=== PATIENT | female | born 1940 | race Caucasian/White ===

== ENCOUNTER → 2018-02-10 13:33 | Outpatient (CLI) | payer MEDICARE, MEDICAID, SELFPAY ==
[2018-02-10 15:10] LABS: ALB/GLOB Ratio 0.8 RATIO (0.9-2.4); AST(SGOT) 27 U/L (15-37); Alanine Aminotransfer ALT/SGPT 19 U/L (13-56); Albumin, Serum 3.5 g/dL (3.2-5.0); Alkaline Phosphatase 114 U/L (45-117); Anion Gap 8 (5-15); BUN 20 mg/dL (7-18); BUN/Creat Ratio 23.8 RATIO (10-20); Calcium,Total 8.6 mg/dL (8.5-10.1); Chloride 102 mmol/L (98-107); Creatinine, Serum 0.84 mg/dL (0.55-1.02); EST Glomerular Filtration Rate 69 mL/min (>60); Est Glom Filt Rate - Afr Amer 84 mL/min (>60); Globulin 4.6 g/dL (2.2-4.2); Glucose 84 mg/dL (74-106); Magnesium 2.1 mg/dL (1.6-2.6); Potassium 3.9 mmol/L (3.5-5.1); Protein, Total 8.1 g/dL (6.4-8.2); Sodium Level 137 mmol/L (136-145); Thyroid Stim Hormone (TSH) 1.42 uIU/mL (0.358-3.74)
== END ==
PROVIDERS: Family Provider Family Medicine; PCP Family Medicine; Visit Provider Internal Medicine Endocrinology, Diabetes & Metabolism
DX: E03.8 Other specified hypothyroidism (principal); E83.42 Hypomagnesemia
CPT/HCPCS: 36415; 80053; 83735; 84443

== ENCOUNTER → 2018-08-11 12:07 | Outpatient (CLI) | payer MEDICARE, MEDICAID, SELFPAY ==
[2018-08-11 13:24] LABS: ALB/GLOB Ratio 0.8 RATIO (0.9-2.4); AST(SGOT) 30 U/L (15-37); Alanine Aminotransfer ALT/SGPT 24 U/L (13-56); Albumin, Serum 3.6 g/dL (3.2-5.0); Alkaline Phosphatase 123 U/L (45-117); Anion Gap 11 (5-15); BUN 26 mg/dL (7-18); BUN/Creat Ratio 25.2 RATIO (10-20); Calcium,Total 8.8 mg/dL (8.5-10.1); Chloride 103 mmol/L (98-107); Creatinine, Serum 1.03 mg/dL (0.55-1.02); EST Glomerular Filtration Rate 55 mL/min (>60); Est Glom Filt Rate - Afr Amer 66 mL/min (>60); Globulin 4.5 g/dL (2.2-4.2); Glucose 95 mg/dL (74-106); Magnesium 2.2 mg/dL (1.6-2.6); Potassium 3.5 mmol/L (3.5-5.1); Protein, Total 8.1 g/dL (6.4-8.2); Sodium Level 140 mmol/L (136-145); Thyroid Stim Hormone (TSH) 9.49 uIU/mL (0.358-3.74)
[2018-08-11 13:42] LABS: Vitamin D,25 Hydroxy 106.9 ng/mL (29.95-100.01)
== END ==
PROVIDERS: Family Provider Family Medicine; PCP Family Medicine; Visit Provider Internal Medicine Endocrinology, Diabetes & Metabolism
DX: E03.8 Other specified hypothyroidism (principal); E55.9 Vitamin D deficiency, unspecified; E83.42 Hypomagnesemia
CPT/HCPCS: 36415; 80053; 82306; 83735; 84443

== ENCOUNTER → 2018-11-02 13:28 | Outpatient (CLI) | payer MEDICARE, MEDICAID, SELFPAY ==
[2018-11-02 14:58] LABS: Thyroid Stim Hormone (TSH) 1.54 uIU/mL (0.358-3.74)
--- OUTSIDE RECORDS SUMMARY | 2018-12-19 17:29 | XMS RPT_ITS ---
:1940 Author Organization OHIP Care Team Providers Name Role Phone KYLE REYES Attending Unavailable BIANKA CASTELLANO (PUBLIC INFORMATION RELATIONS MANAGER) Referring Unavailable ERIC, KYLE Wick Referring Unavailable ERIC, KYLE Wcik Referring Unavailable ERIC, KYLE Wick Referring Unavailable ERIC, KYLE Wick Referring Unavailable ERIC, KYLE Wick Referring Unavailable ERIC, KYLE Wick Referring Unavailable ERIC, KYLE Wick Referring Unavailable ERIC, KYLE Wick Referring Unavailable ALEJANDRO THORNTON (PUBLIC INFORMATION RELATIONS MANAGER) Attending Unavailable ERIC, KYLE Wick Referring Unavailable ERIC, KYLE Wick Referring Unavailable WIETECHATRAN Attending Unavailable WIETECHA, TRAN Referring Unavailable [place], Kyle Primary Care Unavailable WITRAN FLANAGAN Attending Unavailable WIETECHATRAN Referring Unavailable Eric, Kyle Primary Care Unavailable WIBUCKYCHATRAN Attending Unavailable WIETECHA, TRAN Referring Unavailable Eric, Kyle Primary Care Unavailable PROBLEMS PROBLEMS DATE TYPE CONDITION / CODE ATTENDING STATUS SOURCE 11/02/2018 Unknown E03.8 - Other WIETEMICHAEL, TRAN Active [facility] hypothyroidism / Hospital E03.8(ICD-10) Repository 08/11/2018 Unknown E83.42 - WIETEMICHAEL, TRAN Active [facility] Hypomagnesemia / Community E83.42(ICD-10) Hospital Repository 08/11/2018 Unknown E55.9 - Vitamin D WIETEMICHAEL, TRAN Active [facility] deficiency, Community unspecified / Hospital E55.9(ICD-10) Repository 04/06/2018 Active Encounter for Active [facility] screening [facility] for malignant P[place] neoplasm of breast / Repository Z12.31(ICD-10) PROCEDURES PROCEDURES No Procedure Records FoundRESULTS RESULTS CNNURSE Observed: 11/21/2018 Status: COMPLETED Source: [place] 1:30 PM [facility] REPOSITORY Nurse Visit (FAMPWS) URSULAJACKLYN ([id number]) 1940 F NFR Date Time Provider Department 11/21/18 1:30 PM [place] [facility] During your visit today, we recorded the following information about you: Damari Durham LPN 11/21/2018 1:30 PM Signed Patient presents for B-12 injection. Denies any problems at this time. Patient instructed on any SE of medication, verbalized understanding and agreed to proceed with treatment. Tolerated injection well. Damari Durham LPN Referring Provider: KYLE REYES [[id number]] Allergies As of Date: 11/21/2018 Noted Allergy Reaction ALEVE (NAPROXEN SODIUM) 10/27/2011 8 - GI Upset band aid [Other] 04/27/2012 14 - Other: See Comments Comments: Band aid and tape. Leaves redness on the skin. Patient unsure if this is latex allergy. RED DYE 07/17/2011 4 - Hives Comments: Rosibel Date Reviewed: 10/06/2018 Reviewed by: Alana Cruz MA - Fully Assessed Reason for Visit: B-12 Injection [247] Primary Visit Diagnosis:Pernicious anemia [D51.0] Prescriptions as of 11/21/2018 Sig: ASPIRIN 81 MG TABLET,DELAYED * Take 1 tablet by mouth once d* * CALCIUM 500 ORAL Take 1 tablet by mouth once d* ERGOCALCIFEROL (VITAMIN D2) 5* Take 1 capsule by mouth once * HYDROCHLOROTHIAZIDE 25 MG TAB* take 1 tablet by mouth once d* KRILL OIL ORAL Take by mouth once daily. * LEVOTHYROXINE 75 MCG TABLET Take one tablet on Wed-* * MULTIVITAMIN TABLET Take 1 tablet by mouth once d* NEBIVOLOL 10 MG TABLET Take 1 tablet by mouth once d* OMEPRAZOLE 40 MG CAPSULE,FOX* take 1 capsule by mouth once * SERTRALINE 100 MG TABLET take 1 tablet by mouth once d* SIMVASTATIN 20 MG TABLET take 1 tablet by mouth at bed* VITAMIN A-VITAMIN C-VIT E-MIN* Take 1 tablet by mouth once d* VITAMIN E ORAL Take 400 mg by mouth once willa* Problem List As Of Date 11/21/2018 Noted Resolved Displacement of lumbar intervertebral disc with*INVALID FOR* Other physical therapy [[id number]] INVALID FOR*01/26/2017 Essential hypertension [I10] More... DJD (degenerative joint disease), lumbar [M47.8* Hypothyroidism [E03.9] Hyperlipidemia [E78.5] Pernicious anemia [D51.0] INVALID FOR* GERD (gastroesophageal reflux disease) [K21.9] INVALID FOR* Vitamin D deficiency [E55.9] INVALID FOR* Dysthymic disorder [F34.1] More... Chronic constipation [K59.09] INVALID FOR* More... History of colonic polyps [Z86.010] INVALID FOR* More... Encounter Status:Closed by DAMARI DURHAM LPN on 11/21/18 PROGRESS Observed: 11/21/2018 Status: COMPLETED Source: [place] 1:26 PM [facility] REPOSITORY HNO ID: [id number] Author: Damari Durham LPN Service: (none) Author Type: (none) Type: Progress Notes Filed: 11/21/2018 1:30 PM Note Text: Patient presents for B-12 injection. Denies any problems at this time. Patient instructed on any SE of medication, verbalized understanding and agreed to proceed with treatment. Tolerated injection well. Damari Durham LPN CNCO Observed: 11/07/2018 Status: COMPLETED Source: [place] 12:00 AM [facility] [place] REPOSITORY Letter Text Jacklyn Vergara [address] [facility] [address] 11/07/2018 [facility] #: [id number] Dear , Due to a change in the provider's schedule it has been necessary to reschedule your Appointment. Your original appointment was scheduled for 12/01/18 at 1:20 PM with Kyle Reyes MD. Your new appointment is now scheduled on 01/17/2019 at 3:00 PM with Kyle Reyes MD. If this new appointment is not convenient for you, please contact our office at [phone]. Thank you for choosing the [facility] as your Healthcare Provider . Sincerely, Family Medicine Appointment Office THYROID STIM HORMONE Collected: 11/02/2018 Status: F Source: [place] ([facility]) 1:39 PM [facility] REPOSITORY TYPE CODE TESTS RESULT OUT OF RANGE REFERENCE UNITS LAB [id number] 0.358-3.74 uIU/mL Normal TSH 1.54 Performed By: #### [id number] #### [facility] [address] [place], [address] PROGRESS Observed: 10/21/2018 Status: COMPLETED Source: [place] 1:35 PM [facility] REPOSITORY HNO ID: [id number] Author: Damari Durham LPN Service: (none) Author Type: (none) Type: Progress Notes Filed: 10/21/2018 1:36 PM Note Text: Patient presents for B-12 injection. Denies any problems at this time. Patient instructed on any SE of medication, verbalized understanding and agreed to proceed with treatment. Tolerated injection well. Damari Durham LPN CNNURSE Observed: 10/21/2018 Status: COMPLETED Source: [place] 1:30 PM [facility] REPOSITORY Nurse Visit (RANIPWS) JACKLYN VERGARA ([id number]) 1940 F NFR Date Time Provider Department 10/21/18 1:30 PM [place] NURSE [facility] During your visit today, we recorded the following information about you: Damari Durham LPN 10/21/2018 1:36 PM Signed Patient presents for B-12 injection. Denies any problems at this time. Patient instructed on any SE of medication, verbalized understanding and agreed to proceed with treatment. Tolerated injection well. Damari Durham [employer] STORAGE ARCHITECT Referring Provider: KYLE REYES [[id number]] Allergies As of Date: 10/21/2018 Noted Allergy Reaction ALEVE (NAPROXEN SODIUM) 10/27/2011 8 - GI Upset band aid [Other] 04/27/2012 14 - Other: See Comments Comments: Band aid and tape. Leaves redness on the skin. Patient unsure if this is latex allergy. RED DYE 07/17/2011 4 - Hives Comments: Rosibel Date Reviewed: 10/06/2018 Reviewed by: Alana Headley) VAMSHI Cruz - Fully Assessed Reason for Visit: B-12 Injection [247] Primary Visit Diagnosis:Pernicious anemia [D51.0] Prescriptions as of 10/21/2018 Sig: SIMVASTATIN 20 MG TABLET take 1 tablet by mouth at bed* HYDROCHLOROTHIAZIDE 25 MG TAB* take 1 tablet by mouth once d* SERTRALINE 100 MG TABLET take 1 tablet by mouth once d* OMEPRAZOLE 40 MG CAPSULE,FOX* take 1 capsule by mouth once * KRILL OIL ORAL Take by mouth once daily. ERGOCALCIFEROL (VITAMIN D2) 5* Take 1 capsule by mouth once * VITAMIN E ORAL Take 400 mg by mouth once willa* ASPIRIN 81 MG TABLET,DELAYED * Take 1 tablet by mouth once d* NEBIVOLOL 10 MG TABLET Take 1 tablet by mouth once d* VITAMIN A-VITAMIN C-VIT E-MIN* Take 1 tablet by mouth once d* * CALCIUM 500 ORAL Take 1 tablet by mouth once d* * LEVOTHYROXINE 75 MCG TABLET Take one tablet on Wed-* * MULTIVITAMIN TABLET Take 1 tablet by mouth once d* Problem List As Of Date 10/21/2018 Noted Resolved Displacement of lumbar intervertebral disc with*INVALID FOR* Other physical therapy [[id number]] INVALID FOR*01/26/2017 Essential hypertension [I10] More... DJD (degenerative joint disease), lumbar [M47.8* Hypothyroidism [E03.9] Hyperlipidemia [E78.5] Pernicious anemia [D51.0] INVALID FOR* GERD (gastroesophageal reflux disease) [K21.9] INVALID FOR* Vitamin D deficiency [E55.9] INVALID FOR* Dysthymic disorder [F34.1] More... Chronic constipation [K59.09] INVALID FOR* More... History of colonic polyps [Z86.010] INVALID FOR* More... Encounter Status:Closed by DAMARI DURHAM LPN on 10/21/18 MAAME Observed: 10/06/2018 Status: COMPLETED Source: [place] 11:00 AM [facility] REPOSITORY Office Visit (FAMPWS) JACKLYN VERGARA ([id number]) 1940 F NFR Date Time Provider Department 10/06/18 11:00 AM ALEJANDRO THORNTON ([facility] During your visit today, we recorded the following information about you: Pulse Respiration Blood pressure Weight 89/minute 20/minute 126/68 60.8 kg Alejandro Thornton APRN.SANDHYA 10/06/2018 12:46 PM Signed 10/06/2018 Patient presents with: Mole SUBJECTIVE: This is a 78 year old that is here today for mole that has been there for years that is itching more than it had been. She is not sure if it has changed size or color. No bleeding. Located right on the back near the axilla on the bra line. She denies any history with dermatology or skin concerns in the past. PAST MEDICAL HISTORY Diagnosis Date - Allergic rhinitis, cause unspecified Allergic rhinitis - Calculus of gallbladder without mention of cholecystitis or obstruction - Chronic cholecystitis - DJD (degenerative joint disease), lumbar - Dysthymic disorder Depression (non-psychotic) - Hyperlipidemia - Hypothyroidism sees Dr. Shankar - Osteoporosis 2011 severe, T12 compfx - Peripheral edema - Pernicious anemia - PMH - PAST MEDICAL HISTORY OF THYROID DISORDER - Rosacea on doxy - Unspecified essential hypertension Essential hypertension - Vitamin D deficiency ALLERGIES Aleve [Naproxen Sodium]; Band Aid [Other]; Red Dye MEDICATIONS Current Outpatient Prescriptions: simvastatin (ZOCOR) 20 mg tablet take 1 tablet by mouth at bedtime hydroCHLOROthiazide (HYDRODIURIL, ESIDRIX) 25 mg tablet take 1 tablet by mouth once daily sertraline (ZOLOFT) 100 mg tablet take 1 tablet by mouth once daily Omeprazole 40 mg capsule take 1 capsule by mouth once daily KRILL OIL ORAL Take by mouth once daily. ergocalciferol, vitamin D2, (DRISDOL) 50,000 unit capsule Take 1 capsule by mouth once each week. VITAMIN E ORAL Take 400 mg by mouth once daily. aspirin, enteric coated 81 mg EC tablet Take 1 tablet by mouth once daily. vitamin A-ascorbic acid-vitamin E-minerals (OCUVITE) Tab Take 1 tablet by mouth once daily. CALCIUM CARBONATE (CALCIUM 500 ORAL) Take 1 tablet by mouth once daily. levothyroxine (SYNTHROID) 75 mcg tablet Take one tablet on Wed-Wednesday and 1/2 tablet on Wednesday multivitamin (ONE-A-DAY ESSENTIAL) ORAL tablet Take 1 tablet by mouth once daily. GUMMY CHEWS nebivolol (BYSTOLIC) 10 mg tablet Take 1 tablet by mouth once daily. Current Facility-Administered Medications: cyanocobalamin 1,000 mcg injection 1,000 mcg INTRAMUSCULAR q 4 WEEKS Medications and allergies reviewed by this provider. SOCIAL HISTORY Social History Marital status: Spouse name: Years of education: Number of children: 3 Social History Main Topics Smoking status: Never Smoker Smokeless tobacco: Never Used Alcohol use: No Drug use: No Sexual activity: No REVIEW OF SYSTEMS see HPI OBJECTIVE: BP 126/68 Pulse 89 Resp 20 Wt 60.8 kg (134 lb) SpO2 97% BMI 27.06 kg/m? . Vital signs reviewed by this provider. PHYSICAL EXAMINATION: General appearance: Well appearing, alert, in no acute distress, well-hydrated, well nourished. Skin: 1cm x 0.5 cm donaldson dry raised nevi with very small black pinpoint spot in the middle. Slightly irregular shape. nontender to touch. surrounding skin without concern. Lungs: lungs clear to auscultation. No wheezing, rhonchi, rales Heart: RRR without murmur, gallop, or rubs. No ectopy Extremities: No deformities, edema, skin discoloration, clubbing or cyanosis. Good capillary refill. , Pulses: 2+ ASSESSMENT/PLAN: 1. 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 Eric assess and remove if able stating that she has a long standing relationship with him and does not always trust other providers. She is agreeable to see dermatology if he feels that it is needed. - encouraged adequate hydration and using lotion regularly - follow up as needed Alejandro Thornton APRN.PUBLIC INFORMATION RELATIONS MANAGER Referring Provider: SELF [[id number]] Allergies As of Date: 10/06/2018 Noted Allergy Reaction ALEVE (NAPROXEN SODIUM) 10/27/2011 8 - GI Upset band aid [Other] 04/27/2012 14 - Other: See Comments Comments: Band aid and tape. Leaves redness on the skin. Patient unsure if this is latex allergy. 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 ERGOCALCIFEROL (VITAMIN D2) 5* Take 1 capsule by mouth once * VITAMIN E ORAL Take 400 mg by mouth once willa* ASPIRIN 81 MG TABLET,DELAYED * Take 1 tablet by mouth once d* VITAMIN A-VITAMIN C-VIT E-MIN* Take 1 tablet by mouth once d* * CALCIUM 500 ORAL Take 1 tablet by mouth once d* * LEVOTHYROXINE 75 MCG TABLET Take one tablet on Wed-* * MULTIVITAMIN TABLET Take 1 tablet by mouth once d* NEBIVOLOL 10 MG TABLET Take 1 tablet by mouth once d* Problem List As Of Date 10/06/2018 Noted Resolved Displacement of lumbar intervertebral disc with*INVALID FOR* Other physical therapy [[id number]] INVALID FOR*01/26/2017 Essential hypertension [I10] More... DJD (degenerative joint disease), lumbar [M47.8* Hypothyroidism [E03.9] Hyperlipidemia [E78.5] Pernicious anemia [D51.0] INVALID FOR* GERD (gastroesophageal reflux disease) [K21.9] INVALID FOR* Vitamin D deficiency [E55.9] INVALID FOR* Dysthymic disorder [F34.1] More... Chronic constipation [K59.09] INVALID FOR* More... History of colonic polyps [Z86.010] INVALID FOR* More... Encounter Status:Closed by ALEJANDRO THORNTON on 10/06/18 PROGRESS Observed: 10/06/2018 Status: COMPLETED Source: [place] 10:59 AM [facility] [place] REPOSITORY O ID: [id number] Author: Alejandro (Braille Proofreader) Janis Service: (none) Author Type: Nurse Practitioner Type: Progress Notes Filed: 10/06/2018 12:46 PM Note Text: 10/06/2018 Patient presents with: Mole SUBJECTIVE: This is a 78 year old that is here today for mole that has been there for years that is itching more than it had been. She is not sure if it has changed size or color. No bleeding. Located right on the back near the axilla on the bra line. She denies any history with dermatology or skin concerns in the past. PAST MEDICAL HISTORY Diagnosis Date - Allergic rhinitis, cause unspecified Allergic rhinitis - Calculus of gallbladder without mention of cholecystitis or obstruction - Chronic cholecystitis - DJD (degenerative joint disease), lumbar - Dysthymic disorder Depression (non-psychotic) - Hyperlipidemia - Hypothyroidism sees Dr. Shankar - Osteoporosis 2011 severe, T12 compfx - Peripheral edema - Pernicious anemia - PMH - PAST MEDICAL HISTORY OF THYROID DISORDER - Rosacea on doxy - Unspecified essential hypertension Essential hypertension - Vitamin D deficiency ALLERGIES Aleve [Naproxen Sodium]; Band Aid [Other]; Red Dye MEDICATIONS Current Outpatient Prescriptions: simvastatin (ZOCOR) 20 mg tablet take 1 tablet by mouth at bedtime hydroCHLOROthiazide (HYDRODIURIL, ESIDRIX) 25 mg tablet take 1 tablet by mouth once daily sertraline (ZOLOFT) 100 mg tablet take 1 tablet by mouth once daily Omeprazole 40 mg capsule take 1 capsule by mouth once daily KRILL OIL ORAL Take by mouth once daily. ergocalciferol, vitamin D2, (DRISDOL) 50,000 unit capsule Take 1 capsule by mouth once each week. VITAMIN E ORAL Take 400 mg by mouth once daily. aspirin, enteric coated 81 mg EC tablet Take 1 tablet by mouth once daily. vitamin A-ascorbic acid-vitamin E-minerals (OCUVITE) Tab Take 1 tablet by mouth once daily. CALCIUM CARBONATE (CALCIUM 500 ORAL) Take 1 tablet by mouth once daily. levothyroxine (SYNTHROID) 75 mcg tablet Take one tablet on Wed-Wednesday and 1/2 tablet on Wednesday multivitamin (ONE-A-DAY ESSENTIAL) ORAL tablet Take 1 tablet by mouth once daily. GUMMY CHEWS nebivolol (BYSTOLIC) 10 mg tablet Take 1 tablet by mouth once daily. Current Facility-Administered Medications: cyanocobalamin 1,000 mcg injection 1,000 mcg INTRAMUSCULAR q 4 WEEKS Medications and allergies reviewed by this provider. SOCIAL HISTORY Social History Marital status: Spouse name: Years of education: Number of children: 3 Social History Main Topics Smoking status: Never Smoker Smokeless tobacco: Never Used Alcohol use: No Drug use: No Sexual activity: No REVIEW OF SYSTEMS see HPI OBJECTIVE: BP 126/68 Pulse 89 Resp 20 Wt 60.8 kg (134 lb) SpO2 97% BMI 27.06 kg/m? . Vital signs reviewed by this provider. PHYSICAL EXAMINATION: General appearance: Well appearing, alert, in no acute distress, well-hydrated, well nourished. Skin: 1cm x 0.5 cm donaldson dry raised nevi with very small black pinpoint spot in the middle. Slightly irregular shape. nontender to touch. surrounding skin without concern. Lungs: lungs clear to auscultation. No wheezing, rhonchi, rales Heart: RRR without murmur, gallop, or rubs. No ectopy Extremities: No deformities, edema, skin discoloration, clubbing or cyanosis. Good capillary refill. , Pulses: 2+ ASSESSMENT/PLAN: 1. 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 Reyes assess and remove if able stating that she has a long standing relationship with him and does not always trust other providers. She is agreeable to see dermatology if he feels that it is needed. - encouraged adequate hydration and using lotion regularly - follow up as needed Alejandro Thornton APRN.PUBLIC INFORMATION RELATIONS MANAGER PROGRESS Observed: 09/20/2018 Status: COMPLETED Source: [place] 2:23 PM [facility] [place] REPOSITORY HNO ID: [id number] Author: Damari Durham LPN Service: (none) Author Type: (none) Type: Progress Notes Filed: 09/20/2018 2:25 PM Note Text: Patient presents for B-12 injection. Denies any problems at this time. Patient instructed on any SE of medication, verbalized understanding and agreed to proceed with treatment. Tolerated injection well. Damari Durham LPN CNNURSE Observed: 09/20/2018 Status: COMPLETED Source: [place] 2:15 PM [facility] REPOSITORY Nurse Visit (FAMPWS) JACKLYN VERGARA ([id number]) 1940 F NFR Date Time Provider Department 09/20/18 2:15 PM [place] [facility] During your visit today, we recorded the following information about you: Damari Durham LPN 09/20/2018 2:25 PM Signed Patient presents for B-12 injection. Denies any problems at this time. Patient instructed on any SE of medication, verbalized understanding and agreed to proceed with treatment. Tolerated injection well. Damari Durham LPN Referring Provider: KYLE REYES [[id number]] Allergies As of Date: 09/20/2018 Noted Allergy Reaction ALEVE (NAPROXEN SODIUM) 10/27/2011 8 - GI Upset band aid [Other] 04/27/2012 14 - Other: See Comments Comments: Band aid and tape. Leaves redness on the skin. Patient unsure if this is latex allergy. RED DYE 07/17/2011 4 - Hives Comments: Rosibel Date Reviewed: 02/16/2018 Reviewed by: Alison Isabel Ma - Fully Assessed Reason for Visit: B-12 Injection [247] Primary Visit Diagnosis:Pernicious anemia [D51.0] Prescriptions as of 09/20/2018 Sig: SIMVASTATIN 20 MG TABLET take 1 tablet by mouth at bed* HYDROCHLOROTHIAZIDE 25 MG TAB* take 1 tablet by mouth once d* SERTRALINE 100 MG TABLET take 1 tablet by mouth once d* OMEPRAZOLE 40 MG CAPSULE,FOX* take 1 capsule by mouth once * KRILL OIL ORAL Take by mouth once daily. ERGOCALCIFEROL (VITAMIN D2) 5* Take 1 capsule by mouth once * VITAMIN E ORAL Take 400 mg by mouth once willa* ASPIRIN 81 MG TABLET,DELAYED * Take 1 tablet by mouth once d* NEBIVOLOL 10 MG TABLET Take 1 tablet by mouth once d* VITAMIN A-VITAMIN C-VIT E-MIN* Take 1 tablet by mouth once d* * CALCIUM 500 ORAL Take 1 tablet by mouth once d* * LEVOTHYROXINE 75 MCG TABLET Take one tablet on Wed-* * MULTIVITAMIN TABLET Take 1 tablet by mouth once d* Problem List As Of Date 09/20/2018 Noted Resolved Displacement of lumbar intervertebral disc with*INVALID FOR* Other physical therapy [[id number]] INVALID FOR*01/26/2017 Essential hypertension [I10] More... DJD (degenerative joint disease), lumbar [M47.8* Hypothyroidism [E03.9] Hyperlipidemia [E78.5] Pernicious anemia [D51.0] INVALID FOR* GERD (gastroesophageal reflux disease) [K21.9] INVALID FOR* Vitamin D deficiency [E55.9] INVALID FOR* Dysthymic disorder [F34.1] More... Chronic constipation [K59.09] INVALID FOR* More... History of colonic polyps [Z86.010] INVALID FOR* More... Encounter Status:Closed by DAMARI DURHAM LPN on 09/20/18 CNNURSE Observed: 08/18/2018 Status: COMPLETED Source: [place] 1:30 PM [facility] REPOSITORY Nurse Visit (FAMPWS) JACKLYN VERGARA ([id number]) 1940 F NFR Date Time Provider Department 08/18/18 1:30 PM [place] NURSE [facility] During your visit today, we recorded the following information about you: Temperature 99.3 degrees Damari Durham LPN 08/18/2018 1:28 PM Signed Patient presents for B-12 injection. Denies any problems at this time. Patient instructed on any SE of medication, verbalized understanding and agreed to proceed with treatment. Tolerated injection well. Damari Durham LPN 78 year old female here for INACTIVATED INFLUENZA VACCINE. [id number] Season Patient is identified by name and date of : Yes [] CONTRAINDICATIONS color enhanced section Age less than 6 months? No Allergy to eggs, chicken, chicken feathers, or chicken dander? No Allergy to thimerosal (a preservative) or formaldehyde, gelatin? No History of severe reaction to any vaccine component or a previous dose of influenza vaccination? No History of Guillain-[place] Syndrome within 6 weeks after a previous influenza vaccine? No Patient is not moderately or severely ill? No Current temperature greater or equal to 100.4F? No History of Bone Marrow Transplant prior 6 months or solid organ transplant in the past 3 months ? No History of fainting after a prior injection or medical procedure? No- ? If patient has fainted in the past, the CDC recommends sitting or lying down for 15 minutes after the vaccination. [] VERIFICATION color enhanced section Was the answer Yes for any of the above contraindications? No contraindications present. Acceptable to proceed with vaccine. Patient/guardian agrees the above answers are true to the best of their knowledge? Yes Flu vaccine information sheet given? Yes See immunization [facility] in [facility] for details of immunizations adminstered today. Patient age: [age] year old For The 1762-1535 Flu Season 6-35 months old: Fluzone 0.25 ml - IM (Preservative Free) 3 years of age: Fluzone 0.5 ml - IM (Preservative Free) 3 years and older: Fluzone 0.5 ml- IM-(with Preservatives) 65+ years old: 2-49 years old Fluzone High-Dose 0.5 ml - IM (Preservative Free) FLUMIST- intranasal REMEMBER: If patient is less than 9 years of age and this is the first vaccine of Influenza to be received in any flu season, they should receive a second dose in one months time. Referring Provider: KYLE REYES [[id number]] Allergies As of Date: 08/18/2018 Noted Allergy Reaction ALEVE (NAPROXEN SODIUM) 10/27/2011 8 - GI Upset band aid [Other] 04/27/2012 14 - Other: See Comments Comments: Band aid and tape. Leaves redness on the skin. Patient unsure if this is latex allergy. RED DYE 07/17/2011 4 - Hives Comments: Rosibel Date Reviewed: 02/16/2018 Reviewed by: Alison Isabel Ma - Fully Assessed Reason for Visit: B-12 Injection [247] Imm/Inj [58] Cmt: Flu Vaccine Reason For Visit History Recorded Primary Visit Diagnosis:Pernicious anemia [D51.0] Other Visit Diagnosis:Need for vaccination [Z23] Order(s):INFLUENZA SEASONAL HIGH DOSE AGE 65+ [[id number]] Order #: [id number] Prescriptions as of 08/18/2018 Sig: SIMVASTATIN 20 MG TABLET take 1 tablet by mouth at bed* HYDROCHLOROTHIAZIDE 25 MG TAB* take 1 tablet by mouth once d* SERTRALINE 100 MG TABLET take 1 tablet by mouth once d* OMEPRAZOLE 40 MG CAPSULE,FOX* take 1 capsule by mouth once * KRILL OIL ORAL Take by mouth once daily. ERGOCALCIFEROL (VITAMIN D2) 5* Take 1 capsule by mouth once * VITAMIN E ORAL Take 400 mg by mouth once willa* ASPIRIN 81 MG TABLET,DELAYED * Take 1 tablet by mouth once d* NEBIVOLOL 10 MG TABLET Take 1 tablet by mouth once d* VITAMIN A-VITAMIN C-VIT E-MIN* Take 1 tablet by mouth once d* * CALCIUM 500 ORAL Take 1 tablet by mouth once d* * LEVOTHYROXINE 75 MCG TABLET Take one tablet on Mon-Saturd* * MULTIVITAMIN TABLET Take 1 tablet by mouth once d* Problem List As Of Date 08/18/2018 Noted Resolved Displacement of lumbar intervertebral disc with*INVALID FOR* Other physical therapy [[id number]] INVALID FOR*01/26/2017 Essential hypertension [I10] More... DJD (degenerative joint disease), lumbar [M47.8* Hypothyroidism [E03.9] Hyperlipidemia [E78.5] Pernicious anemia [D51.0] INVALID FOR* GERD (gastroesophageal reflux disease) [K21.9] INVALID FOR* Vitamin D deficiency [E55.9] INVALID FOR* Dysthymic disorder [F34.1] More... Chronic constipation [K59.09] INVALID FOR* More... History of colonic polyps [Z86.010] INVALID FOR* More... Encounter Status:Closed by DAMARI DURHAM LPN on 08/18/18 PROGRESS Observed: 08/18/2018 Status: COMPLETED Source: [place] 1:24 PM [facility] REPOSITORY HNO ID: [id number] Author: Damari Durham LPN Service: (none) Author Type: (none) Type: Progress Notes Filed: 08/18/2018 1:28 PM Note Text: Patient presents for B-12 injection. Denies any problems at this time. Patient instructed on any SE of medication, verbalized understanding and agreed to proceed with treatment. Tolerated injection well. Damari Durham LPN 78 year old female here for INACTIVATED INFLUENZA VACCINE. 2391-0094 Season Patient is identified by name and date of : Yes [] CONTRAINDICATIONS color enhanced section Age less than 6 months? No Allergy to eggs, chicken, chicken feathers, or chicken dander? No Allergy to thimerosal (a preservative) or formaldehyde, gelatin? No History of severe reaction to any vaccine component or a previous dose of influenza vaccination? No History of Guillain-Montville Syndrome within 6 weeks after a previous influenza vaccine? No Patient is not moderately or severely ill? No Current temperature greater or equal to 100.4F? No History of Bone Marrow Transplant prior 6 months or solid organ transplant in the past 3 months ? No History of fainting after a prior injection or medical procedure? No- ? If patient has fainted in the past, the CDC recommends sitting or lying down for 15 minutes after the vaccination. [] VERIFICATION color enhanced section Was the answer Yes for any of the above contraindications? No contraindications present. Acceptable to proceed with vaccine. Patient/guardian agrees the above answers are true to the best of their knowledge? Yes Flu vaccine information sheet given? Yes See immunization activity in Praccel for details of immunizations adminstered today. Patient age: [age] year old For The 1812-8426 Flu Season 6-35 months old: Fluzone 0.25 ml - IM (Preservative Free) 3 years of age: Fluzone 0.5 ml - IM (Preservative Free) 3 years and older: Fluzone 0.5 ml- IM-(with Preservatives) 65+ years old: 2-49 years old Fluzone High-Dose 0.5 ml - IM (Preservative Free) FLUMIST- intranasal REMEMBER: If patient is less than 9 years of age and this is the first vaccine of Influenza to be received in any flu season, they should receive a second dose in one months time. COMPREHENSIVE METABOLIC Collected: 08/11/2018 Status: F Source: [place] 12:19 PM [facility] REPOSITORY TYPE CODE TESTS RESULT OUT OF RANGE REFERENCE UNITS LAB L501.0100 74-106 mg/dL Normal GLU 95 Result Comment: Please note revised GLUCOSE reference range effective 2017. LAB L501.1000 7-18 mg/dL High BUN 26 LAB L501.1100 0.55-1.02 mg/dL High CREAT,SERUM 1.03 Result Comment: The validity of the calculated GFR AND GFRAA in patients over 70 years has not been determined. Clinical correlation is essential. LAB L501.1110 >60 mL/min Low EST GFR 55 Result Comment: Non- GFR Calc LAB L501.1115 >60 mL/min Normal EST GFR - AA 66 Result Comment: GFR Calc LAB L501.1300 10-20 RATIO High BUN/CRE 25.2 LAB L501.1500 6.4-8.2 g/dL T Normal PROT 8.1 LAB L501.1800 3.2-5.0 g/dL Normal ALB 3.6 LAB L501.1950 2.2-4.2 g/dL High GLOB 4.5 LAB L501.2000 0.9-2.4 RATIO Low A/G 0.8 LAB L501.2200 8.5-10.1 mg/dL CA Normal 8.8 LAB L501.4100 15-37 U/L Normal AST 30 LAB L501.4305 45-117 U/L High ALK P 123 LAB L501.4405 13-56 U/L Normal ALT 24 LAB L501.4600 0.20-1.00 mg/dL T Normal BILI 0.30 LAB L501.5300 136-145 mmol/L NA Normal 140 LAB L501.5600 3.5-5.1 mmol/L K Normal 3.5 LAB L501.5900 98-107 mmol/L CL Normal 103 LAB L501.6100 21.0-32.0 mmol/L Normal CO2 26.0 LAB L501.6200 5-15 Normal GAP 11 Performed By: #### L500.4050, L501.5200, L501.9520 #### [facility] [address] [place], [place], [id number] MAGNESIUM Collected: 08/11/2018 Status: F Source: [place] 12:19 PM [facility] REPOSITORY TYPE CODE TESTS RESULT OUT OF RANGE REFERENCE UNITS LAB L501.5200 1.6-2.6 mg/dL Normal MG 2.2 Performed By: #### L500.4050, L501.5200, L501.9520 #### [facility] [address] [place], [place], [id number] THYROID STIM HORMONE Collected: 08/11/2018 Status: F Source: [place] ([facility]) 12:19 PM [facility] REPOSITORY TYPE CODE TESTS RESULT OUT OF RANGE REFERENCE UNITS LAB L501.9520 0.358-3.74 uIU/mL High TSH 9.49 Performed By: #### L500.4050, L501.5200, L501.9520 #### [facility] [address] [place], [address] VITAMIN D,25 HYDROXY Collected: 08/11/2018 Status: F Source: [place] 12:19 PM [facility] REPOSITORY TYPE CODE TESTS RESULT OUT OF REFERENCE UNITS RANGE LAB L506.1000 29.95-100.01 ng/mL High Vitamin D 106.9 25-OH Result Comment: Vitamin D 25(OH) Status Range Deficiency <20 ng/mL (50nmol/L) Insuffciency 20 - 30 ng/mL (50 - 75 nmol/L) Sufficiency 30 - 100 ng/mL (75 - 250 nmol/L) Toxicity >100 ng/mL (>250 nmol/L) Evidence suggests that patients undergoing fluorescein dye angiography can retain small amounts of fluorescein in the body for up to 48 to 72 hours post-treatment. In the cases of patients with renal insufficiency, retention could be much longer. Samples containing fluorescein can produce falsely elevated values when tested with the Advia Centaur Vitamin D assay. With fluorescein interference, observed Vitamin D values can be as high as >150 ng/mL (>375 nmol/L). Samples should be resubmitted post fluorescein clearance to ensure there is no interference with Vitamin D test results. Performed By: #### L506.1000 #### [facility] [address] [place], [address] PROGRESS Observed: 07/20/2018 Status: COMPLETED Source: [place] 2:37 PM [facility] HNO ID: [id number] Author: Damari Durham LPN Service: (none) Author Type: (none) Type: Progress Notes Filed: 07/20/2018 2:38 PM Note Text: Patient presents for B-12 injection. Denies any problems at this time. Patient instructed on any SE of medication, verbalized understanding and agreed to proceed with treatment. Tolerated injection well. Damari Durham LPN CNNURSE Observed: 07/20/2018 Status: COMPLETED Source: [place] 2:30 PM [facility] REPOSITORY Nurse Visit (FAMPWS) URSULAJACKLYN ([id number]) 1940 F NFR Date Time Provider Department 07/20/18 2:30 PM [place] NURSE ARLYN During your visit today, we recorded the following information about you: Damari Durham LPN 07/20/2018 2:38 PM Signed Patient presents for B-12 injection. Denies any problems at this time. Patient instructed on any SE of medication, verbalized understanding and agreed to proceed with treatment. Tolerated injection well. Damari Durham LPN Referring Provider: KYLE REYES [[id number]] Allergies As of Date: 07/20/2018 Noted Allergy Reaction ALEVE (NAPROXEN SODIUM) 10/27/2011 8 - GI Upset band aid [Other] 04/27/2012 14 - Other: See Comments Comments: Band aid and tape. Leaves redness on the skin. Patient unsure if this is latex allergy. RED DYE 07/17/2011 4 - Hives Comments: Rosibel Date Reviewed: 02/16/2018 Reviewed by: Alison Isabel Ma - Fully Assessed Reason for Visit: B-12 Injection [247] Primary Visit Diagnosis:Pernicious anemia [D51.0] Prescriptions as of 07/20/2018 Sig: SIMVASTATIN 20 MG TABLET take 1 tablet by mouth at bed* HYDROCHLOROTHIAZIDE 25 MG TAB* take 1 tablet by mouth once d* SERTRALINE 100 MG TABLET take 1 tablet by mouth once d* OMEPRAZOLE 40 MG CAPSULE,FOX* take 1 capsule by mouth once * KRILL OIL ORAL Take by mouth once daily. ERGOCALCIFEROL (VITAMIN D2) 5* Take 1 capsule by mouth once * VITAMIN E ORAL Take 400 mg by mouth once willa* ASPIRIN 81 MG TABLET,DELAYED * Take 1 tablet by mouth once d* NEBIVOLOL 10 MG TABLET Take 1 tablet by mouth once d* VITAMIN A-VITAMIN C-VIT E-MIN* Take 1 tablet by mouth once d* * CALCIUM 500 ORAL Take 1 tablet by mouth once d* * LEVOTHYROXINE 75 MCG TABLET Take one tablet on Wed-d* * MULTIVITAMIN TABLET Take 1 tablet by mouth once d* Problem List As Of Date 07/20/2018 Noted Resolved Displacement of lumbar intervertebral disc with*INVALID FOR* Other physical therapy [[id number]] INVALID FOR*01/26/2017 Essential hypertension [I10] More... DJD (degenerative joint disease), lumbar [M47.8* Hypothyroidism [E03.9] Hyperlipidemia [E78.5] Pernicious anemia [D51.0] INVALID FOR* GERD (gastroesophageal reflux disease) [K21.9] INVALID FOR* Vitamin D deficiency [E55.9] INVALID FOR* Dysthymic disorder [F34.1] More... Chronic constipation [K59.09] INVALID FOR* More... History of colonic polyps [Z86.010] INVALID FOR* More... Encounter Status:Closed by DAMARI DURHAM LPN on 07/20/18 CNNURSE Observed: 06/17/2018 Status: COMPLETED Source: [place] 1:30 PM [facility] REPOSITORY Nurse Visit (FAMPWS) JACKLYN VERGARA ([id number]) 1940 F NFR Date Time Provider Department [facility]/17[facility]18 1:30 PM [facility] your visit today, we recorded the following information about you: Damari Durham LPN 06/17/2018 1:23 PM Signed Patient presents for B-12 injection. Denies any problems at this time. Patient instructed on any SE of medication, verbalized understanding and agreed to proceed with treatment. Tolerated injection well. Damari Durham LPN Referring Provider: KYLE REYES [[id number]] Allergies As of Date: 06/17/2018 Noted Allergy Reaction ALEVE (NAPROXEN SODIUM) 10/27/2011 8 - GI Upset band aid [Other] 04/27/2012 14 - Other: See Comments Comments: Band aid and tape. Leaves redness on the skin. Patient unsure if this is latex allergy. RED DYE 07/17/2011 4 - Hives Comments: Rosibel Date Reviewed: 02/16/2018 Reviewed by: Alison Isabel Ma - Fully Assessed Reason for Visit: B-12 Injection [247] Primary Visit Diagnosis:Pernicious anemia [D51.0] Prescriptions as of 06/17/2018 Sig: SIMVASTATIN 20 MG TABLET take 1 tablet by mouth at bed* HYDROCHLOROTHIAZIDE 25 MG TAB* take 1 tablet by mouth once d* SERTRALINE 100 MG TABLET take 1 tablet by mouth once d* OMEPRAZOLE 40 MG CAPSULE,FOX* take 1 capsule by mouth once * KRILL OIL ORAL Take by mouth once daily. ERGOCALCIFEROL (VITAMIN D2) 5* Take 1 capsule by mouth once * VITAMIN E ORAL Take 400 mg by mouth once willa* ASPIRIN 81 MG TABLET,DELAYED * Take 1 tablet by mouth once d* NEBIVOLOL 10 MG TABLET Take 1 tablet by mouth once d* VITAMIN A-VITAMIN C-VIT E-MIN* Take 1 tablet by mouth once d* * CALCIUM 500 ORAL Take 1 tablet by mouth once d* * LEVOTHYROXINE 75 MCG TABLET Take one tablet on Wed-* * MULTIVITAMIN TABLET Take 1 tablet by mouth once d* Problem List As Of Date 06/17/2018 Noted Resolved Displacement of lumbar intervertebral disc with*INVALID FOR* Other physical therapy [[id number]] INVALID FOR*01/26/2017 Essential hypertension [I10] More... DJD (degenerative joint disease), lumbar [M47.8* Hypothyroidism [E03.9] Hyperlipidemia [E78.5] Pernicious anemia [D51.0] INVALID FOR* GERD (gastroesophageal reflux disease) [K21.9] INVALID FOR* Vitamin D deficiency [E55.9] INVALID FOR* Dysthymic disorder [F34.1] More... Chronic constipation [K59.09] INVALID FOR* More... History of colonic polyps [Z86.010] INVALID FOR* More... Encounter Status:Closed by DAMARI DURHAM LPN on 06/17/18 PROGRESS Observed: 06/17/2018 Status: COMPLETED Source: [place] 1:22 PM [facility] REPOSITORY HNO ID: [id number] Author: Damari Durham LPN Service: (none) Author Type: (none) Type: Progress Notes Filed: 06/17/2018 1:23 PM Note Text: Patient presents for B-12 injection. Denies any problems at this time. Patient instructed on any SE of medication, verbalized understanding and agreed to proceed with treatment. Tolerated injection well. Damari Durham LPN CNNURSE Observed: 05/20/2018 Status: COMPLETED Source: [place] 2:45 PM [facility] REPOSITORY Nurse Visit (FAMPWS) JACKLYN VERGARA ([id number]) 1940 F NFR Date Time Provider Department 05/20/18 2:45 PM [place] NURSE FAMPWS During your visit today, we recorded the following information about you: Damari Durham LPN 05/20/2018 1:07 PM Signed Patient presents for B-12 injection. Denies any problems at this time. Patient instructed on any SE of medication, verbalized understanding and agreed to proceed with treatment. Tolerated injection well. Damari Durham LPN Referring Provider: KYLE REYES [[id number]] Allergies As of Date: 05/20/2018 Noted Allergy Reaction ALEVE (NAPROXEN SODIUM) 10/27/2011 8 - GI Upset band aid [Other] 04/27/2012 14 - Other: See Comments Comments: Band aid and tape. Leaves redness on the skin. Patient unsure if this is latex allergy. RED DYE 07/17/2011 4 - Hives Comments: Rosibel Date Reviewed: 02/16/2018 Reviewed by: Alison Isabel Ma - Fully Assessed Reason for Visit: B-12 Injection [247] Primary Visit Diagnosis:Pernicious anemia [D51.0] Prescriptions as of 05/20/2018 Sig: HYDROCHLOROTHIAZIDE 25 MG TAB* take 1 tablet by mouth once d* SERTRALINE 100 MG TABLET take 1 tablet by mouth once d* SIMVASTATIN 20 MG TABLET Take 1 tablet by mouth daily * OMEPRAZOLE 40 MG CAPSULE,FOX* take 1 capsule by mouth once * KRILL OIL ORAL Take by mouth once daily. ERGOCALCIFEROL (VITAMIN D2) 5* Take 1 capsule by mouth once * VITAMIN E ORAL Take 400 mg by mouth once willa* ASPIRIN 81 MG TABLET,DELAYED * Take 1 tablet by mouth once d* NEBIVOLOL 10 MG TABLET Take 1 tablet by mouth once d* VITAMIN A-VITAMIN C-VIT E-MIN* Take 1 tablet by mouth once d* * CALCIUM 500 ORAL Take 1 tablet by mouth once d* * LEVOTHYROXINE 75 MCG TABLET Take one tablet on Wed-* * MULTIVITAMIN TABLET Take 1 tablet by mouth once d* Problem List As Of Date 05/20/2018 Noted Resolved Displacement of lumbar intervertebral disc with*INVALID FOR* Other physical therapy [[id number]] INVALID FOR*01/26/2017 Essential hypertension [I10] More... DJD (degenerative joint disease), lumbar [M47.8* Hypothyroidism [E03.9] Hyperlipidemia [E78.5] Pernicious anemia [D51.0] INVALID FOR* GERD (gastroesophageal reflux disease) [K21.9] INVALID FOR* Vitamin D deficiency [E55.9] INVALID FOR* Dysthymic disorder [F34.1] More... Chronic constipation [K59.09] INVALID FOR* More... History of colonic polyps [Z86.010] INVALID FOR* More... Encounter Status:Closed by DAMARI DURHAM LPN on 05/20/18 PROGRESS Observed: 05/20/2018 Status: COMPLETED Source: [place] 1:01 PM [facility] REPOSITORY HNO ID: [id number] Author: Damari Durham LPN Service: (none) Author Type: (none) Type: Progress Notes Filed: 05/20/2018 1:07 PM Note Text: Patient presents for B-12 injection. Denies any problems at this time. Patient instructed on any SE of medication, verbalized understanding and agreed to proceed with treatment. Tolerated injection well. Damari Durham LPN PROGRESS Observed: 04/20/2018 Status: COMPLETED Source: [place] 12:50 PM [facility] REPOSITORY HNO ID: [id number] Author: Damari Durham LPN Service: (none) Author Type: (none) Type: Progress Notes Filed: 04/20/2018 12:52 PM Note Text: Patient presents for B-12 injection. Denies any problems at this time. Patient instructed on any SE of medication, verbalized understanding and agreed to proceed with treatment. Tolerated injection well. Damari Durham LPN CNNURSE Observed: 04/20/2018 Status: COMPLETED Source: [place] 12:45 PM [facility] REPOSITORY Nurse Visit (FAMPWS) URSULAJACKLYN L ([id number]) 1940 F NFR Date Time Provider Department 04/20/18 12:45 PM [place] [facility] your visit today, we recorded the following information about you: Damari Durham LPN 04/20/2018 12:52 PM Signed Patient presents for B-12 injection. Denies any problems at this time. Patient instructed on any SE of medication, verbalized understanding and agreed to proceed with treatment. Tolerated injection well. Damari Durham LPN Referring Provider: KYLE REYES [[id number]] Allergies As of Date: 04/20/2018 Noted Allergy Reaction ALEVE (NAPROXEN SODIUM) 10/27/2011 8 - GI Upset band aid [Other] 04/27/2012 14 - Other: See Comments Comments: Band aid and tape. Leaves redness on the skin. Patient unsure if this is latex allergy. RED DYE 07/17/2011 4 - Hives Comments: Rosibel Date Reviewed: 02/16/2018 Reviewed by: Alison Isabel Ma - Fully Assessed Reason for Visit: Blood Pressure Check [195] Primary Visit Diagnosis:Pernicious anemia [D51.0] Prescriptions as of 04/20/2018 Sig: SERTRALINE 100 MG TABLET take 1 tablet by mouth once d* SIMVASTATIN 20 MG TABLET Take 1 tablet by mouth daily * OMEPRAZOLE 40 MG CAPSULE,FOX* take 1 capsule by mouth once * KRILL OIL ORAL Take by mouth once daily. HYDROCHLOROTHIAZIDE 25 MG TAB* Take 1 tablet by mouth once d* ERGOCALCIFEROL (VITAMIN D2) 5* Take 1 capsule by mouth once * VITAMIN E ORAL Take 400 mg by mouth once willa* ASPIRIN 81 MG TABLET,DELAYED * Take 1 tablet by mouth once d* NEBIVOLOL 10 MG TABLET Take 1 tablet by mouth once d* VITAMIN A-VITAMIN C-VIT E-MIN* Take 1 tablet by mouth once d* * CALCIUM 500 ORAL Take 1 tablet by mouth once d* * LEVOTHYROXINE 75 MCG TABLET Take one tablet on Wed-Saturd* * MULTIVITAMIN TABLET Take 1 tablet by mouth once d* Problem List As Of Date 04/20/2018 Noted Resolved Displacement of lumbar intervertebral disc with*INVALID FOR* Other physical therapy [[id number]] INVALID FOR*01/26/2017 Essential hypertension [I10] More... DJD (degenerative joint disease), lumbar [M47.8* Hypothyroidism [E03.9] Hyperlipidemia [E78.5] Pernicious anemia [D51.0] INVALID FOR* GERD (gastroesophageal reflux disease) [K21.9] INVALID FOR* Vitamin D deficiency [E55.9] INVALID FOR* Dysthymic disorder [F34.1] More... Chronic constipation [K59.09] INVALID FOR* More... History of colonic polyps [Z86.010] INVALID FOR* More... Encounter Status:Closed by DAMARI DURHAM LPN on 04/20/18 CNCO Observed: 04/06/2018 Status: COMPLETED Source: [place] 3:48 PM [facility] REPOSITORY [facility] ID: [id number] Author: Mammography Coordinator Service: (none) Author Type: Physician Type: Letter Filed: 04/07/2018 11:32 PM Note Text: April 06, 2018 PID: [id number] Jacklyn Vergara [address] [place] [address] Dear Ms. Vergara, We are pleased to inform you that the results of your recent breast imaging exam on 04/06/2018 are normal. Early detection of cancer is very important. We also understand recommendations regarding breast cancer screening are controversial. Please discuss with your primary care provider which strategy is best for you and whether a mammogram is right for you. Your imaging studies and report will be kept on file at [facility] as part of your permanent medical record and are available for your continuing care. Thank you for allowing us to help in meeting your health care needs. Sincerely, Dr. Amaya Interpreting Radiologist [facility] (Normal over 40) [facility] SCREENING Observed: 04/06/2018 Status: F Source: [place] 3:27 PM [facility] REPOSITORY * * *Final Report* * * DATE OF EXAM: Apr 06 2018 3:27PM [facility] [id number] - [facility] SCREENING / PROCEDURE REASON: Encounter for screening mammogram for malignant neoplasm of breast * * * * Physician Interpretation * * * * RESULT: #[id number] - AMANDA SCREENING BILATERAL DIGITAL SCREENING MAMMOGRAM WITH CAD: 04/06/2018 HISTORY: Encounter For Screening Mammogram For Malignant Neoplasm Of Breast. RESULT: TECHNIQUE: The study was acquired using full field digital technology and interpreted from soft copy. Current study was also evaluated with a Computer Aided Detection (CAD). Comparison is made to exams dated: 03/02/2017 mammogram, 02/28/2016 mammogram, 02/26/2015 mammogram, and 10/27/2013 mammogram - [facility]. There are scattered fibroglandular elements in both breasts. No significant masses, calcifications, or other findings are seen in either breast. There has been no significant interval change. IMPRESSION: NEGATIVE There is no mammographic evidence of malignancy. A 1 year screening mammogram is recommended. Ayesha long/ronn:04/06/2018 15:48:34 Addiction Medicine Physician: Mony NEWMAN)(Esthela), [facility] letter sent: Normal over 40 Mammogram BI-RADS: 1 Negative Diesel Power Mechanic: Ronn Transcribe Date/Time: Apr 06 2018 3:21P Dictated by: AYESHA AMAYA MD This examination was interpreted and the report reviewed and electronically signed by: AYESHA AMAYA MD on Apr 06 2018 3:48PM EST [id number] PROGRESS Observed: 03/21/2018 Status: COMPLETED Source: [place] 12:33 PM [facility] REPOSITORY HNO ID: [id number] Author: Damari Durham LPN Service: (none) Author Type: (none) Type: Progress Notes Filed: 03/21/2018 12:39 PM Note Text: Patient presents for B-12 injection. Denies any problems at this time. Patient instructed on any SE of medication, verbalized understanding and agreed to proceed with treatment. Tolerated injection well. Damari Durham LPN CNNURSE Observed: 03/21/2018 Status: COMPLETED Source: [place] 12:30 PM [facility] REPOSITORY Nurse Visit (FAMPWS) URSULAJACKLYN L ([id number]) 1940 F NFR Date Time Provider Department 03/21/18 12:30 PM [place] [facility] your visit today, we recorded the following information about you: Damari Durham LPN 03/21/2018 12:39 PM Signed Patient presents for B-12 injection. Denies any problems at this time. Patient instructed on any SE of medication, verbalized understanding and agreed to proceed with treatment. Tolerated injection well. Damari Durham LPN Referring Provider: KYLE REYES [[id number]] Allergies As of Date: 03/21/2018 Noted Allergy Reaction ALEVE (NAPROXEN SODIUM) 10/27/2011 8 - GI Upset band aid [Other] 04/27/2012 14 - Other: See Comments Comments: Band aid and tape. Leaves redness on the skin. Patient unsure if this is latex allergy. RED DYE 07/17/2011 4 - Hives Comments: Rosibel Date Reviewed: 02/16/2018 Reviewed by: Alison Isabel Ma - Fully Assessed Reason for Visit: B-12 Injection [247] Primary Visit Diagnosis:Pernicious anemia [D51.0] Prescriptions as of 03/21/2018 Sig: SERTRALINE 100 MG TABLET take 1 tablet by mouth once d* SIMVASTATIN 20 MG TABLET Take 1 tablet by mouth daily * CYANOCOBALAMIN (VIT B-12) 1,0* Inject 1 mL intramuscularly o* OMEPRAZOLE 40 MG CAPSULE,FOX* take 1 capsule by mouth once * KRILL OIL ORAL Take by mouth once daily. HYDROCHLOROTHIAZIDE 25 MG TAB* Take 1 tablet by mouth once d* ERGOCALCIFEROL (VITAMIN D2) 5* Take 1 capsule by mouth once * VITAMIN E ORAL Take 400 mg by mouth once willa* ASPIRIN 81 MG TABLET,DELAYED * Take 1 tablet by mouth once d* NEBIVOLOL 10 MG TABLET Take 1 tablet by mouth once d* VITAMIN A-VITAMIN C-VIT E-MIN* Take 1 tablet by mouth once d* * CALCIUM 500 ORAL Take 1 tablet by mouth once d* * LEVOTHYROXINE 75 MCG TABLET Take one tablet on Wed-* * MULTIVITAMIN TABLET Take 1 tablet by mouth once d* Problem List As Of Date 03/21/2018 Noted Resolved Displacement of lumbar intervertebral disc with*INVALID FOR* Other physical therapy [[id number]] INVALID FOR*01/26/2017 Essential hypertension [I10] More... DJD (degenerative joint disease), lumbar [M47.8* Hypothyroidism [E03.9] Hyperlipidemia [E78.5] Pernicious anemia [D51.0] INVALID FOR* GERD (gastroesophageal reflux disease) [K21.9] INVALID FOR* Vitamin D deficiency [E55.9] INVALID FOR* Dysthymic disorder [F34.1] More... Chronic constipation [K59.09] INVALID FOR* More... History of colonic polyps [Z86.010] INVALID FOR* More... Encounter Status:Closed by DAMARI DURHAM LPN on 03/21/18 PROGRESS Observed: 02/18/2018 Status: COMPLETED Source: [place] 12:58 PM [facility] REPOSITORY HNO ID: [id number] Author: Damari Durham LPN Service: (none) Author Type: (none) Type: Progress Notes Filed: 02/18/2018 12:59 PM Note Text: Patient presents for B-12 injection. Denies any problems at this time. Patient instructed on any SE of medication, verbalized understanding and agreed to proceed with treatment. Tolerated injection well. Damari Durham LPN CNNURSE Observed: 02/18/2018 Status: COMPLETED Source: [place] 12:45 PM [facility] RE[facility]ITORY [facility] JACKLYN VERGARA ([id number]) 1940 F NFR Date Time Provider Department 02/18/18 12:45 PM [place] NURSE ARLYN During your visit today, we recorded the following information about you: Damari Durham LPN 02/18/2018 12:59 PM Signed Patient presents for B-12 injection. Denies any problems at this time. Patient instructed on any SE of medication, verbalized understanding and agreed to proceed with treatment. Tolerated injection well. Damari Durham LPN Referring Provider: BIANKA CASTELLANO ([facility]) [[id number]] Allergies As of Date: 02/18/2018 Noted Allergy Reaction ALEVE (NAPROXEN SODIUM) 10/27/2011 8 - GI Upset RED DYE 07/17/2011 4 - Hives Comments: [place] band aid [Other] 04/27/2012 14 - Other: See Comments Comments: Band aid and tape. Leaves redness on the skin. Patient unsure if this is latex allergy. Date Reviewed: 02/16/2018 Reviewed by: Alison Isabel Ma - Fully Assessed Reason for Visit: B-12 Injection [247] Primary Visit Diagnosis:Pernicious anemia [D51.0] Prescriptions as of 02/18/2018 Sig: AMOXICILLIN 875 MG TABLET Take 1 tablet by mouth twice * SIMVASTATIN 20 MG TABLET Take 1 tablet by mouth daily * CYANOCOBALAMIN (VIT B-12) 1,0* Inject 1 mL intramuscularly o* OMEPRAZOLE 40 MG CAPSULE,FOX* take 1 capsule by mouth once * KRILL OIL ORAL Take by mouth once daily. HYDROCHLOROTHIAZIDE 25 MG TAB* Take 1 tablet by mouth once d* SERTRALINE 100 MG TABLET Take 1 tablet by mouth once d* ERGOCALCIFEROL (VITAMIN D2) 5* Take 1 capsule by mouth once * VITAMIN E ORAL Take 400 mg by mouth once willa* ASPIRIN 81 MG TABLET,DELAYED * Take 1 tablet by mouth once d* NEBIVOLOL 10 MG TABLET Take 1 tablet by mouth once d* VITAMIN A-VITAMIN C-VIT E-MIN* Take 1 tablet by mouth once d* * CALCIUM 500 ORAL Take 1 tablet by mouth once d* * LEVOTHYROXINE 75 MCG TABLET Take one tablet on Wed-Saturd* * MULTIVITAMIN TABLET Take 1 tablet by mouth once d* Medication notes this encounter CYANOCOBALAMIN (VIT B-12) 1,000 MCG/ML INJECTION SOLUTION >> Daamri Durham LPN 02/18/2018 12:58 PM >> DAMARI DURHAM LPN WedFeb 18, 2018 12:58 PM The patient is here for an injection of Vitamin B12 (Cyanocobalamin). Dose: 1000mcg/1ml Amount wasted: none. 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 Lot #: [id number] Expiration Date: 06/21/2019 The date due for the next injection is one month Damari Durham LPN Problem List As Of Date 02/18/2018 Noted Resolved Displacement of lumbar intervertebral disc with*INVALID FOR* Other physical therapy [[id number]] INVALID FOR*01/26/2017 Essential hypertension [I10] More... DJD (degenerative joint disease), lumbar [M47.8* Hypothyroidism [E03.9] Hyperlipidemia [E78.5] Pernicious anemia [D51.0] INVALID FOR* GERD (gastroesophageal reflux disease) [K21.9] INVALID FOR* Vitamin D deficiency [E55.9] INVALID FOR* Dysthymic disorder [F34.1] More... Chronic constipation [K59.09] INVALID FOR* More... History of colonic polyps [Z86.010] INVALID FOR* More... Encounter Status:Closed by DAMARI DURHAM LPN on 02/18/18 PROGRESS Observed: 02/16/2018 Status: COMPLETED Source: [place] 3:12 PM [facility] REPOSITORY O ID: [id number] Author: Bianka Castellano Service: (none) Author Type: Nurse Practitioner Type: Progress Notes Filed: 02/16/2018 4:19 PM Note Text: 77 year old female with c/o URI sx over the last week. Sore throat: Yes - scratchy. Nasal congestion: Yes. Nasal drip: Yes. Sinus pain/ pressure: Yes - above right eye Headache No. Body aches Yes initially Ear pain: Yes. Cough: Yes. Production: Yes. Sometimes clear and sometimes yellow. Fever: Yes. Tmax 99.8. Hx asthma No. Hx pneumonia No. Smoker: No. OTC meds tried: robitussin. Increased fluids. Pt with hx of pernicious anemia. Hasn't received B12 for awhile. Reports she just didn't get scheduled after the last one. Encouraged her to get rescheduled for this. ACTIVE PROBLEM LIST Displacement of Lumbar Intervertebral Disc Without Myelopathy Essential Hypertension Djd (Degenerative Joint Disease), Lumbar Hypothyroidism Hyperlipidemia Pernicious Anemia Gerd (Gastroesophageal Reflux Disease) Vitamin D Deficiency Dysthymic Disorder Chronic Constipation History of Colonic Polyps Current Outpatient Prescriptions: simvastatin (ZOCOR) 20 mg tablet Take 1 tablet by mouth daily at bedtime. Disp: 90 tablet Rfl: 3 Omeprazole 40 mg capsule take 1 capsule by mouth once daily Disp: 90 capsule Rfl: 3 KRILL OIL ORAL Take by mouth once daily. Disp: Rfl: hydroCHLOROthiazide (HYDRODIURIL, ESIDRIX) 25 mg tablet Take 1 tablet by mouth once daily. Disp: 90 tablet Rfl: 3 sertraline (ZOLOFT) 100 mg tablet Take 1 tablet by mouth once daily. Disp: 90 tablet Rfl: 4 ergocalciferol, vitamin D2, (DRISDOL) 50,000 unit capsule Take 1 capsule by mouth once each week. Disp: 12 capsule Rfl: 3 VITAMIN E ORAL Take 400 mg by mouth once daily. Disp: Rfl: aspirin, enteric coated 81 mg EC tablet Take 1 tablet by mouth once daily. Disp: Rfl: 0 nebivolol (BYSTOLIC) 10 mg tablet Take 1 tablet by mouth once daily. Disp: 30 tablet Rfl: 5 vitamin A-ascorbic acid-vitamin E-minerals (OCUVITE) Tab Take 1 tablet by mouth once daily. Disp: Rfl: 0 CALCIUM CARBONATE (CALCIUM 500 ORAL) Take 1 tablet by mouth once daily. Disp: Rfl: levothyroxine (SYNTHROID) 75 mcg tablet Take one tablet on Wed-Wednesday and 1/2 tablet on Wednesday Disp: 90 tablet Rfl: 3 multivitamin (ONE-A-DAY ESSENTIAL) ORAL tablet Take 1 tablet by mouth once daily. GUMMY CHEWS Disp: Rfl: 0 cyanocobalamin (VITAMIN B-12) 1,000 mcg/mL soln Inject 1 mL intramuscularly once every month. 1 DOSE MONTHLY Disp: 1 mL Rfl: 11 No current facility-administered medications for this visit. OBJECTIVE: BP 136/62 Pulse 77 Temp 37.3 ?C (99.1 ?F) (Tympanic) Wt 59 kg (130 lb) SpO2 97% BMI 26.26 kg/m2 General Appearance: Well appearing, alert, in no acute distress, well-hydrated, well nourished.. Skin: Skin color, texture, turgor normal, no suspicious rashes or lesions. Head: Normocephalic, no masses, lesions, tenderness or abnormalities. Eyes: Anicteric sclera. Pupils are equally round and reactive to light. Extraocular movements are intact. Ears: External ears normal, canals clear, Normal TMs bilaterally. Nose/Sinuses: Nares normal, septum midline, mucosa normal, no drainage. + right maxillary and frontal tenderness. Oropharynx: Lips, mucosa, and tongue normal, teeth and gums normal, oropharynx normal. Neck: Supple, mild anterior cervical adenopathy -- R>L Lungs: Lungs clear to auscultation. No wheezing, rhonchi, rales. Heart: RRR without murmur, gallop, or rubs. No ectopy. Neurologic: Gait normal. Assessment: ASSESSMENT/PLAN: 1. Acute non-recurrent frontal sinusitis - ICD9: 461.1, ICD10: J01.10 (primary diagnosis) - Will begin treatment with Amoxicillin for 10 days - Supportive care with plenty of fluids, rest, and analgesia prn. - AMOXICILLIN 875 MG TABLET Comfort measures for sinus infection discussed (increased fluids, decongestant, saline nasal spray, etc.) Aware to call if symptoms are not improving, worsening, or returns after completion of antibiotic. 2. Pernicious anemia - ICD9: 281.0, ICD10: D51.0 Get rescheduled to resume monthly injections. Discussed treatment plan and patient voices understanding. Patient's questions answered appropriately. Medications and potential side effects were discussed and patient voices understanding. Return to the offce as scheduled or as needed for worsening/no improvement. Bianka Castellano APRN.SANDHYA CNOV Observed: 02/16/2018 Status: COMPLETED Source: [place] 2:40 PM [facility] REPOSITORY [facility] JACKLYN VERGARA ([id number]) 1940 F NFR Date Time Provider Department 02/16/18 2:40 PM BIANKA CASTELLANO (PUBLIC INFORMATION RELATIONS MANAGER) ARLYN During your visit today, we recorded the following information about you: Temperature Pulse Blood pressure Weight 99.1 degrees 77/minute 136/62 59 kg Alison Isabel Vamshi 02/16/2018 3:14 PM Signed DURATION OF SYMPTOMS: Began 1 weeks ago ONSET OF SYMPTOMS: Gradual FEVER: No BODYACHES: Mild TIREDNESS: Mild HEADACHE: No EAR SYMPTOMS: Popping STUFFY NOSE: Yes POST NASAL DRIP: yes SNEEZING: Yes SORE THROAT: Yes - mild COUGH: Yes, dry CHEST DISCOMFORT: No SHORTNESS OF BREATH: Yes - with exertion WHEEZING: No SPUTUM PRODUCTION: Clear Yellow OVER THE COUNTER MEDICATION PATIENT IS TAKING: Patient is using Robitussin Bianka Castellano APRN.CNP 02/16/2018 4:19 PM Signed 77 year old female with c/o URI sx over the last week. Sore throat: Yes - scratchy. Nasal congestion: Yes. Nasal drip: Yes. Sinus pain/ pressure: Yes - above right eye Headache No. Body aches Yes initially Ear pain: Yes. Cough: Yes. Production: Yes. Sometimes clear and sometimes yellow. Fever: Yes. Tmax 99.8. Hx asthma No. Hx pneumonia No. Smoker: No. OTC meds tried: robitussin. Increased fluids. Pt with hx of pernicious anemia. Hasn't received B12 for awhile. Reports she just didn't get scheduled after the last one. Encouraged her to get rescheduled for this. ACTIVE PROBLEM LIST Displacement of Lumbar Intervertebral Disc Without Myelopathy Essential Hypertension Djd (Degenerative Joint Disease), Lumbar Hypothyroidism Hyperlipidemia Pernicious Anemia Gerd (Gastroesophageal Reflux Disease) Vitamin D Deficiency Dysthymic Disorder Chronic Constipation History of Colonic Polyps Current Outpatient Prescriptions: simvastatin (ZOCOR) 20 mg tablet Take 1 tablet by mouth daily at bedtime. Disp: 90 tablet Rfl: 3 Omeprazole 40 mg capsule take 1 capsule by mouth once daily Disp: 90 capsule Rfl: 3 KRILL OIL ORAL Take by mouth once daily. Disp: Rfl: hydroCHLOROthiazide (HYDRODIURIL, ESIDRIX) 25 mg tablet Take 1 tablet by mouth once daily. Disp: 90 tablet Rfl: 3 sertraline (ZOLOFT) 100 mg tablet Take 1 tablet by mouth once daily. Disp: 90 tablet Rfl: 4 ergocalciferol, vitamin D2, (DRISDOL) 50,000 unit capsule Take 1 capsule by mouth once each week. Disp: 12 capsule Rfl: 3 VITAMIN E ORAL Take 400 mg by mouth once daily. Disp: Rfl: aspirin, enteric coated 81 mg EC tablet Take 1 tablet by mouth once daily. Disp: Rfl: 0 nebivolol (BYSTOLIC) 10 mg tablet Take 1 tablet by mouth once daily. Disp: 30 tablet Rfl: 5 vitamin A-ascorbic acid-vitamin E-minerals (OCUVITE) Tab Take 1 tablet by mouth once daily. Disp: Rfl: 0 CALCIUM CARBONATE (CALCIUM 500 ORAL) Take 1 tablet by mouth once daily. Disp: Rfl: levothyroxine (SYNTHROID) 75 mcg tablet Take one tablet on Wed-Wednesday and 1/2 tablet on Wednesday Disp: 90 tablet Rfl: 3 multivitamin (ONE-A-DAY ESSENTIAL) ORAL tablet Take 1 tablet by mouth once daily. GUMMY CHEWS Disp: Rfl: 0 cyanocobalamin (VITAMIN B-12) 1,000 mcg/mL soln Inject 1 mL intramuscularly once every month. 1 DOSE MONTHLY Disp: 1 mL Rfl: 11 No current facility-administered medications for this visit. OBJECTIVE: BP 136/62 Pulse 77 Temp 37.3 ?C (99.1 ?F) (Tympanic) Wt 59 kg (130 lb) SpO2 97% BMI 26.26 kg/m2 General Appearance: Well appearing, alert, in no acute distress, well-hydrated, well nourished.. Skin: Skin color, texture, turgor normal, no suspicious rashes or lesions. Head: Normocephalic, no masses, lesions, tenderness or abnormalities. Eyes: Anicteric sclera. Pupils are equally round and reactive to light. Extraocular movements are intact. Ears: External ears normal, canals clear, Normal TMs bilaterally. Nose/Sinuses: Nares normal, septum midline, mucosa normal, no drainage. + right maxillary and frontal tenderness. Oropharynx: Lips, mucosa, and tongue normal, teeth and gums normal, oropharynx normal. Neck: Supple, mild anterior cervical adenopathy -- RANDgt;L Lungs: Lungs clear to auscultation. No wheezing, rhonchi, rales. Heart: RRR without murmur, gallop, or rubs. No ectopy. Neurologic: Gait normal. Assessment: ASSESSMENT/PLAN: 1. Acute non-recurrent frontal sinusitis - ICD9: 461.1, ICD10: J01.10 (primary diagnosis) - Will begin treatment with Amoxicillin for 10 days - Supportive care with plenty of fluids, rest, and analgesia prn. - AMOXICILLIN 875 MG TABLET Comfort measures for sinus infection discussed (increased fluids, decongestant, saline nasal spray, etc.) Aware to call if symptoms are not improving, worsening, or returns after completion of antibiotic. 2. Pernicious anemia - ICD9: 281.0, ICD10: D51.0 Get rescheduled to resume monthly injections. Discussed treatment plan and patient voices understanding. Patient's questions answered appropriately. Medications and potential side effects were discussed and patient voices understanding. Return to the offce as scheduled or as needed for worsening/no improvement. Bianka Castellano APRN.SANDHYA Castellano APRN.SANDHYA 02/16/2018 3:29 PM Signed 1. Start amoxicillin -- one pill twice daily X 10 days. 2. If symptoms are not improving, or getting worse, or return after the antibiotic -- please let us know. Get plenty of rest. Force fluids daily with water and juices. Nasal saline spray may help to keep nose open and moist: 2- 3 squirts each side every few hours. This also help to rinse out virus and bacteria causing infection. Cool mist humidifier in room during sleep. May use OTC Tylenol or Ibuprofen as direct for discomfort. For sore throat, warm salt water gargles, Chlorseptic spray, lozenges or other OTC sore throat remedies may help. Decongestants such as plain Sudafed or with expectorant such as Mucinex D may help with nasal stuffiness or facial and sinus pressure. Generics are fine. These are over the counter but require an adult signature. If cough keeps you awake at night, try OTC remedies first, such as Nyquil, Delsym, Tashi's 44 or Mucinex DM. If this doesn't help you sleep, call the office for a prescription. Be careful if you are combining cough and cold medications that you aren't doubling the medicines. If you aren't sure: ask the pharmacist for help. Cough or sneeze into your sleeve to prevent spread of infected secretions. Wash your hands frequently. Try not to cough or sneeze on surfaces others might touch. If symptoms fail to improve in 5-7 days, fever ANDgt; 100.5F, general worsening, or other concerning symptoms, return to [facility] or Kyle Reyes MD. Referring Provider: SELF [[id number]] Allergies As of Date: 02/16/2018 Noted Allergy Reaction ALEVE (NAPROXEN SODIUM) 10/27/2011 8 - GI Upset RED DYE 07/17/2011 4 - Hives Comments: [place] band aid [Other] 04/27/2012 14 - Other: See Comments Comments: Band aid and tape. Leaves redness on the skin. Patient unsure if this is latex allergy. Date Reviewed: 02/16/2018 Reviewed by: Alison Isabel Ma - Fully Assessed Reason for Visit: Cough [28] Primary Visit Diagnosis:Acute non-recurrent frontal sinusitis [J01.10] Other Visit Diagnosis:Pernicious anemia [D51.0] Order(s):amoxicillin (AMOXIL) 875 mg tabletTake 1 tablet by mouth twice daily for 10 days.Disp: 20 tabletRfl: 0 Prescriptions as of 02/16/2018 Sig: SIMVASTATIN 20 MG TABLET Take 1 tablet by mouth daily * OMEPRAZOLE 40 MG CAPSULE,FOX* take 1 capsule by mouth once * KRILL OIL ORAL Take by mouth once daily. HYDROCHLOROTHIAZIDE 25 MG TAB* Take 1 tablet by mouth once d* SERTRALINE 100 MG TABLET Take 1 tablet by mouth once d* ERGOCALCIFEROL (VITAMIN D2) 5* Take 1 capsule by mouth once * VITAMIN E ORAL Take 400 mg by mouth once willa* ASPIRIN 81 MG TABLET,DELAYED * Take 1 tablet by mouth once d* NEBIVOLOL 10 MG TABLET Take 1 tablet by mouth once d* VITAMIN A-VITAMIN C-VIT E-MIN* Take 1 tablet by mouth once d* * CALCIUM 500 ORAL Take 1 tablet by mouth once d* * LEVOTHYROXINE 75 MCG TABLET Take one tablet on Mon-Saturd* * MULTIVITAMIN TABLET Take 1 tablet by mouth once d* AMOXICILLIN 875 MG TABLET Take 1 tablet by mouth twice * CYANOCOBALAMIN (VIT B-12) 1,0* Inject 1 mL intramuscularly o* Problem List As Of Date 02/16/2018 Noted Resolved Displacement of lumbar intervertebral disc with*INVALID FOR* Other physical therapy [[id number]] INVALID FOR*01/26/2017 Essential hypertension [I10] More... DJD (degenerative joint disease), lumbar [M47.8* Hypothyroidism [E03.9] Hyperlipidemia [E78.5] Pernicious anemia [D51.0] INVALID FOR* GERD (gastroesophageal reflux disease) [K21.9] INVALID FOR* Vitamin D deficiency [E55.9] INVALID FOR* Dysthymic disorder [F34.1] More... Chronic constipation [K59.09] INVALID FOR* More... History of colonic polyps [Z86.010] INVALID FOR* More... Other instructions from your clinician: 1. Start amoxicillin -- one pill twice daily X 10 days. 2. If symptoms are not improving, or getting worse, or return after the antibiotic -- please let us know. Get plenty of rest. Force fluids daily with water and juices. Nasal saline spray may help to keep nose open and moist: 2-3 squirts each side every few hours. This also help to rinse out virus and bacteria causing infection. Cool mist humidifier in room during sleep. May use OTC Tylenol or Ibuprofen as direct for discomfort. For sore throat, warm salt water gargles, Chlorseptic spray, lozenges or other OTC sore throat remedies may help. Decongestants such as plain Sudafed or with expectorant such as Mucinex D may help with nasal stuffiness or facial and sinus pressure. Generics are fine. These are over the counter but require an adult signature. If cough keeps you awake at night, try OTC remedies first, such as Nyquil, Delsym, Tashi's 44 or Mucinex DM. If this doesn't help you sleep, call the office for a prescription. Be careful if you are combining cough and cold medications that you aren't doubling the medicines. If you aren't sure: ask the pharmacist for help. Cough or sneeze into your sleeve to prevent spread of infected secretions. Wash your hands frequently. Try not to cough or sneeze on surfaces others might touch. If symptoms fail to improve in 5-7 days, fever > 100.5F, general worsening, or other concerning symptoms, return to [facility] or Kyle Reyes MD. Visit Notes: >> Alison Isabel Ma WedFeb 16, 2018 2:50 PM Status: Signed DURATION OF SYMPTOMS: Began 1 weeks ago ONSET OF SYMPTOMS: Gradual FEVER: No BODYACHES: Mild TIREDNESS: Mild HEADACHE: No EAR SYMPTOMS: Popping STUFFY NOSE: Yes POST NASAL DRIP: yes SNEEZING: Yes SORE THROAT: Yes - mild COUGH: Yes, dry CHEST DISCOMFORT: No SHORTNESS OF BREATH: Yes - with exertion WHEEZING: No SPUTUM PRODUCTION: Clear Yellow OVER THE COUNTER MEDICATION PATIENT IS TAKING: Patient is using Robitussin Prescriptions ordered this encounter Disp Refills Start End AMOXICILLIN 875 MG TABLET 20 t* 0 02/16/2018 02/26/2018 Route: ORAL Sig: Take 1 tablet by mouth twice daily for 10 days. Disposition: Return if symptoms worsen or fail to improve. Follow-up and Disposition History Recorded Encounter Status:Closed by BIANKA CASTELLANO CNP on 02/16/18 COMPREHENSIVE METABOLIC Collected: 02/10/2018 Status: F Source: [place] 1:39 PM [facility] REPOSITORY TYPE CODE TESTS RESULT OUT OF RANGE REFERENCE UNITS LAB L501.0100 74-106 mg/dL Normal GLU 84 Result Comment: Please note revised GLUCOSE reference range effective 2017. LAB L501.1000 7-18 mg/dL High BUN 20 LAB L501.1100 0.55-1.02 mg/dL Normal CREAT,SERUM 0.84 Result Comment: The validity of the calculated GFR AND GFRAA in patients over 70 years has not been determined. Clinical correlation is essential. LAB L501.1110 >60 mL/min Normal EST GFR 69 Result Comment: Non- GFR Calc LAB L501.1115 >60 mL/min Normal EST GFR - AA 84 Result Comment: GFR Calc LAB L501.1300 10-20 RATIO High BUN/CRE 23.8 LAB L501.1500 6.4-8.2 g/dL T Normal PROT 8.1 LAB L501.1800 3.2-5.0 g/dL Normal ALB 3.5 LAB L501.1950 2.2-4.2 g/dL High GLOB 4.6 LAB L501.2000 0.9-2.4 RATIO Low A/G 0.8 LAB L501.2200 8.5-10.1 mg/dL CA Normal 8.6 LAB L501.4100 15-37 U/L Normal AST 27 LAB L501.4305 45-117 U/L Normal ALK P 114 LAB L501.4405 13-56 U/L Normal ALT 19 Result Comment: Please note revised ALT reference range effective 2017. LAB L501.4600 0.20-1.00 mg/dL Normal T BILI 0.30 LAB L501.5300 136-145 mmol/L Normal NA 137 LAB L501.5600 3.5-5.1 mmol/L Normal K 3.9 LAB L501.5900 98-107 mmol/L Normal CL 102 LAB L501.6100 21.0-32.0 mmol/L Normal CO2 27.0 LAB L501.6200 5-15 Normal GAP 8 Performed By: #### L500.4050, L501.5200, L501.9520 #### [facility] [address] [place], [place], [address] MAGNESIUM Collected: 02/10/2018 Status: F Source: [place] 1:39 PM [facility] REPOSITORY TYPE CODE TESTS RESULT OUT OF RANGE REFERENCE UNITS LAB L501.5200 1.6-2.6 mg/dL Normal MG 2.1 Result Comment: Please note revised Magnesium reference range effective 2017. Performed By: #### L500.4050, L501.5200, L501.9520 #### [facility] [address] [place], [place], [address] THYROID STIM HORMONE Collected: 02/10/2018 Status: F Source: [place] ([facility]) 1:39 PM [facility] REPOSITORY TYPE CODE TESTS RESULT OUT OF RANGE REFERENCE UNITS LAB L501.9520 0.358-3.74 uIU/mL Normal TSH 1.42 Performed By: #### L500.4050, L501.5200, L501.9520 #### [facility] [address] [place], [place], [address] ALLERGIES ALLERGIES DATE TYPE / CODE NAME / CODE REACTION SEVERITY SOURCE 11/27/2014 Drug naproxen Upset Stomach Unknown [facility]/[id number](S sodium/[id number] [facility]) 381(RXNORM) Hospital Repository 11/27/2014 Miscellaneous BANDAIDS Rash Unknown [facility]/[id number](S [facility] Repository 05/12/2014 Drug red Unknown Unknown [facility]/[id number](S dye/[id number] [facility] (RXNORM) Hospital Repository 04/27/2012 Miscellaneous OTHER OTHER: SEE C [place] Allergy/[id number](S Clinic Main NOMED [facility]) [place] Repository 10/27/2011 DRUG NAPROXEN GI UPSET [place] IN[facility]EDI/[id number](S SODIUM [facility] Main NOMED [facility]) [place] Repository 07/17/2011 DRUG RED DYE HIVES [place] IN[facility]I/[id number](S [facility] Main NOMED [facility]) [place] Repository ENCOUNTERS ENCOUNTERS ADMIT/DISCHARGE ACCOUNT ADMITTING ENCOUNTER LOCATION SOURCE NUMBER CLASS 11/21/2018/11/23/19 [id number] Ambulatory [address] Main [place] Repository 11/02/2018 [id number] [facility] ing:LAB Repository 10/21/2018/10/24/20 [id number] Ambulatory [address] Main [place] Repository 10/06/2018/10/07/20 [id number] Ambulatory [address] Repository 09/20/2018/09/21/20 [id number] Ambulatory [address] [place] Repository 08/18/2018/08/19/[id number] [place] Repository 08/11/2018 [id number] [facility] ing:LAB Repository 07/20/2018/07/21/20 [id number] Ambulatory [address] [place] Repository 06/17/2018/06/20/20 [id number] Ambulatory [address] [place] Repository 05/20/2018/05/20/20 [id number] Ambulatory [address] [place] Repository 04/20/2018/04/22/20 [id number] Ambulatory [address] [place] Repository 04/06/2018/04/06/20 [id number] Ambulatory [address] [place] Repository 03/21/2018/05/01 [id number] Ambulatory [address] Repository 02/18/2018/02/22/20 [id number] Ambulatory [address] Repository 02/16/2018/02/18/20 [id number] Ambulatory [address] Repository 02/10/2018 [id number] Ambulatory [place] [facility] ing:LAB Repository PAYERS PAYERS ENCOUNTER GUARANTOR PAYER SUBSCRIBER SOURCE 11/02/2018 JACKLYN L Primary JACKLYN L [place] [id number] Insurance:MEDICARE HACKWORTHDOB: [address] [facility] [id number] Number: Repository [id number]: [phone] [id number] [phone] () Date:2018-11-02 11/02/2018 Secondary JACKLYN L [place] Insurance:MEDICAIDPol HACKWORTHDOB: [facility] icy Number: [id number] [id number] Repository Date:2018-11-02 11/02/2018 Tertiary NOT GIVENUNK [place] Insurance:SELF PAY [facility] Number: Effective Repository Date:2018-11-02 08/11/2018 Jacklyn L Primary Jacklyn L [place] [id number] Insurance:MEDICARE [place]DOB: [address] [facility] [id number] Number: Repository [id number]: [phone] [id number] [phone] () Date:2018-08-11 08/11/2018 Secondary Jacklyn L [place] Insurance:MEDICAIDPol HackworthDOB: Community icy Number: [id number] [id number] Repository Date:2018-08-11 08/11/2018 Tertiary NOT GIVENUNK [place] Insurance:SELF PAY [facility] Effective Repository Date:2018-08-11 02/10/2018 Jacklyn L Primary Jacklyn L [place] [id number] Insurance:MEDICARE HackworthDOB: [address] [facility] [id number] Number: Repository [id number]: [phone] [id number] [phone] () Date:2018-02-10 02/10/2018 Secondary Jacklyn L [place] Insurance:MEDICAIDCarondelet HealthD[facility]: [facility] Number: [id number] [id number] Repository Date:2018-02-10 02/10/2018 Tertiary NOT GIVENUNK [place] Insurance:SELF PAY [facility]: Effective Repository Date:2018-02-10
== END ==
PROVIDERS: Family Provider Family Medicine; PCP Family Medicine; Referring Provider Internal Medicine Endocrinology, Diabetes & Metabolism; Visit Provider Internal Medicine Endocrinology, Diabetes & Metabolism
DX: E03.8 Other specified hypothyroidism (principal)
CPT/HCPCS: 36415; 84443

== ENCOUNTER → 2019-01-09 13:42 | Outpatient (CLI) | payer MEDICARE, MEDICAID, SELFPAY ==
[2019-01-09 15:15] LABS: ALB/GLOB Ratio 0.7 RATIO (0.9-2.4); AST(SGOT) 33 U/L (15-37); Alanine Aminotransfer ALT/SGPT 23 U/L (13-56); Albumin, Serum 3.4 g/dL (3.2-5.0); Alkaline Phosphatase 133 U/L (45-117); Anion Gap 8 (5-15); BUN 16 mg/dL (7-18); BUN/Creat Ratio 20.6 RATIO (10-20); Calcium,Total 8.9 mg/dL (8.5-10.1); Chloride 104 mmol/L (98-107); Creatinine, Serum 0.78 mg/dL (0.55-1.02); EST Glomerular Filtration Rate 76 mL/min (>60); Est Glom Filt Rate - Afr Amer 92 mL/min (>60); Globulin 4.8 g/dL (2.2-4.2); Glucose 83 mg/dL (74-106); Magnesium 1.8 mg/dL (1.6-2.6); Potassium 3.9 mmol/L (3.5-5.1); Protein, Total 8.2 g/dL (6.4-8.2); Sodium Level 136 mmol/L (136-145); Thyroid Stim Hormone (TSH) 1.98 uIU/mL (0.358-3.74)
== END ==
PROVIDERS: Family Provider Family Medicine; PCP Family Medicine; Referring Provider Internal Medicine Endocrinology, Diabetes & Metabolism; Visit Provider Internal Medicine Endocrinology, Diabetes & Metabolism
DX: E83.42 Hypomagnesemia (principal); E03.8 Other specified hypothyroidism
CPT/HCPCS: 36415; 80053; 83735; 84443

== ENCOUNTER → 2019-04-06 | Outpatient (CLI) | payer MEDICARE, MEDICAID, SELFPAY ==
[2019-04-06 14:16] LABS: ALB/GLOB Ratio 0.8 RATIO (0.9-2.4); AST(SGOT) 32 U/L (15-37); Alanine Aminotransfer ALT/SGPT 23 U/L (13-56); Albumin, Serum 3.7 g/dL (3.2-5.0); Alkaline Phosphatase 121 U/L (45-117); Anion Gap 6 (5-15); BUN 19 mg/dL (7-18); BUN/Creat Ratio 20.9 RATIO (10-20); Calcium,Total 8.7 mg/dL (8.5-10.1); Chloride 104 mmol/L (98-107); Creatinine, Serum 0.91 mg/dL (0.55-1.02); EST Glomerular Filtration Rate 63 mL/min (>60); Est Glom Filt Rate - Afr Amer 76 mL/min (>60); Globulin 4.7 g/dL (2.2-4.2); Glucose 89 mg/dL (74-106); Potassium 4.1 mmol/L (3.5-5.1); Protein, Total 8.4 g/dL (6.4-8.2); Sodium Level 137 mmol/L (136-145); Thyroid Stim Hormone (TSH) 1.28 uIU/mL (0.358-3.74)
== END | disposition home or self-care (01) ==
LOC: LAB 13:08
PROVIDERS: Family Provider Family Medicine; PCP Family Medicine; Referring Provider Internal Medicine Endocrinology, Diabetes & Metabolism; Visit Provider Internal Medicine Endocrinology, Diabetes & Metabolism
DX: E03.8 Other specified hypothyroidism (principal)
CPT/HCPCS: 36415; 80053; 84443

== ENCOUNTER → 2020-04-24 | Outpatient (CLI) | payer MEDICARE, SELFPAY ==
[2020-04-24 15:01] LABS: ALB/GLOB Ratio 0.8 RATIO (0.9-2.4); AST(SGOT) 41 U/L (15-37); Alanine Aminotransfer ALT/SGPT 26 U/L (13-56); Albumin, Serum 3.8 g/dL (3.2-5.0); Alkaline Phosphatase 104 U/L (45-117); Anion Gap 7 (5-15); BUN 24 mg/dL (7-18); BUN/Creat Ratio 26.8 RATIO (10-20); Calcium,Total 9.2 mg/dL (8.5-10.1); Chloride 103 mmol/L (98-107); EST Glomerular Filtration Rate 64 mL/min (>60); Est Glom Filt Rate - Afr Amer 78 mL/min (>60); Globulin 4.9 g/dL (2.2-4.2); Glucose 92 mg/dL (74-106); Potassium 3.4 mmol/L (3.5-5.1); Protein, Total 8.7 g/dL (6.4-8.2); Sodium Level 138 mmol/L (136-145); Thyroid Stim Hormone (TSH) 0.64 uIU/mL (0.358-3.74)
== END | disposition home or self-care (01) ==
LOC: LAB 13:28
PROVIDERS: PCP Family Medicine; Referring Provider Internal Medicine Endocrinology, Diabetes & Metabolism; Visit Provider Internal Medicine Endocrinology, Diabetes & Metabolism
DX: E03.8 Other specified hypothyroidism (principal)
CPT/HCPCS: 36415; 80053; 84443

== ENCOUNTER → 2020-07-08 | Outpatient (CLI) | payer MEDICARE, SELFPAY ==
[2020-07-08 13:18] LABS: Thyroid Stim Hormone (TSH) 1.33 uIU/mL (0.358-3.74)
== END | disposition home or self-care (01) ==
LOC: LAB 11:49
PROVIDERS: PCP Family Medicine; Referring Provider Internal Medicine Endocrinology, Diabetes & Metabolism; Visit Provider Internal Medicine Endocrinology, Diabetes & Metabolism
DX: E03.8 Other specified hypothyroidism (principal)
CPT/HCPCS: 36415; 84443

== ENCOUNTER → 2020-09-23 10:40 | Outpatient (CLI) | payer MEDICARE, MEDICAID, SELFPAY ==
[2020-09-23 12:01] LABS: ALB/GLOB Ratio 0.7 RATIO (0.9-2.4); AST(SGOT) 32 U/L (15-37); Alanine Aminotransfer ALT/SGPT 23 U/L (13-56); Albumin, Serum 3.6 g/dL (3.2-5.0); Alkaline Phosphatase 117 U/L (45-117); Anion Gap 7 (5-15); BUN 30 mg/dL (7-18); BUN/Creat Ratio 33.4 RATIO (10-20); Calcium,Total 9.6 mg/dL (8.5-10.1); Chloride 103 mmol/L (98-107); EST Glomerular Filtration Rate 64 mL/min (>60); Est Glom Filt Rate - Afr Amer 77 mL/min (>60); Glucose 86 mg/dL (74-106); Magnesium 2.1 mg/dL (1.6-2.6); Potassium 3.8 mmol/L (3.5-5.1); Protein, Total 8.6 g/dL (6.4-8.2); Sodium Level 137 mmol/L (136-145); Thyroid Stim Hormone (TSH) 0.82 uIU/mL (0.358-3.74)
== END ==
PROVIDERS: PCP Family Medicine; Referring Provider Internal Medicine Endocrinology, Diabetes & Metabolism; Visit Provider Internal Medicine Endocrinology, Diabetes & Metabolism
DX: E03.8 Other specified hypothyroidism (principal); E83.42 Hypomagnesemia
CPT/HCPCS: 36415; 80053; 83735; 84443

== ENCOUNTER → 2020-10-04 12:31 | Outpatient (CLI) | payer MEDICARE, MEDICAID, SELFPAY ==
[2020-10-04 13:01] LABS: Absolute Lymphocyte Count 1.32 X10^3/uL (0.83-4.51); Absolute Neutrophil Count 5.3 X10^3/uL (2.0-7.7); Basophil# 0.03 X10^3/uL; Basophil% 0.4 % (0-1); Eosinophil# 0.18 X10^3/uL; Eosinophils% 2.4 % (0-5); Hematocrit 36.3 % (37-47); Hemoglobin 11.1 g/dL (12.0-15.0); Lymphocyte # 1.32 X10^3/ul (4.0); Lymphocyte % 17.7 % (19-41); Mean Corp Hgb Conc 30.6 g/dL (32-36); Mean Corpuscular Hgb 26.7 pg (27.0-32.0); Mean Corpuscular Volume 87.5 fL (81-99); Mean Platelet Vol. 11.4 fl (6.2-12.0); Monocyte# 0.58 X10^3/uL; Monocyte% 7.8 % (0-10); NRBC Flagged by Analyzer 0 % (0-5); Neutrophil # 5.31 X10^3/uL (2.7-7.7); Neutrophil % 71.4 % (47-70); Platelet Count 298 K/mm3 (150-450); RBC Distribution Width CV 15.2 % (11.6-14.6); RBC Distribution Width SD 48.9 fl (35.1-43.9); Red Blood Count 4.15 M/mm3 (4.2-5.4); White Blood Count 7.4 K/mm3 (4.4-11.0)
[2020-10-08 16:08] LABS: PROEL- A/G Ratio 0.9 (0.7-1.7); PROEL- Albumin 3.7 g/dL (2.9-4.4); PROEL- Alpha-1 Globulin 0.3 g/dL (0.0-0.4); PROEL- Beta Globulin 1.3 g/dL (0.7-1.3); PROEL- Gamma Globulin 1.4 g/dL (0.4-1.8); PROEL- Globulin, Total 4.1 g/dL (2.2-3.9); PROEL- TOTAL PROTEIN 7.8 g/dL (6.0-8.5); PROELU- Albumin, Urine 37.9 % (.); PROELU- Alpha-1-Globulin,Ur 3.2 % (.); PROELU- Alpha-2-Globulin,Ur 12.2 % (.); PROELU- Beta Globulin, Ur 26.7 % (.); Total Protein, Ur 25.7 mg/dL (Not Estab.)
== END ==
PROVIDERS: PCP Family Medicine; Referring Provider Physician Assistant; Visit Provider Physician Assistant
DX: R59.0 Localized enlarged lymph nodes (principal); R74.8 Abnormal levels of other serum enzymes
CPT/HCPCS: 36415; 84165; 84166; 85025

== ENCOUNTER → 2021-01-08 12:08 | Outpatient (CLI) | payer MEDICARE, MEDICAID, SELFPAY ==
[2021-01-08 14:18] LABS: ALB/GLOB Ratio 0.7 RATIO (0.9-2.4); AST(SGOT) 37 U/L (15-37); Alanine Aminotransfer ALT/SGPT 26 U/L (13-56); Albumin, Serum 3.6 g/dL (3.2-5.0); Alkaline Phosphatase 110 U/L (45-117); Anion Gap 6 (5-15); BUN 23 mg/dL (7-18); BUN/Creat Ratio 23.9 RATIO (10-20); Calcium,Total 9.4 mg/dL (8.5-10.1); Chloride 104 mmol/L (98-107); Creatinine, Serum 0.96 mg/dL (0.55-1.02); EST Glomerular Filtration Rate 59 mL/min (>60); Est Glom Filt Rate - Afr Amer 71 mL/min (>60); Globulin 4.9 g/dL (2.2-4.2); Glucose 108 mg/dL (74-106); Magnesium 2.1 mg/dL (1.6-2.6); Potassium 3.9 mmol/L (3.5-5.1); Protein, Total 8.5 g/dL (6.4-8.2); Sodium Level 137 mmol/L (136-145)
[2021-01-09 09:36] LABS: Vitamin D,25 Hydroxy > 150.0 ng/mL (29.95-100.01)
== END ==
PROVIDERS: PCP Family Medicine; Referring Provider Internal Medicine Endocrinology, Diabetes & Metabolism; Visit Provider Internal Medicine Endocrinology, Diabetes & Metabolism
DX: E03.8 Other specified hypothyroidism (principal); E83.42 Hypomagnesemia; E55.9 Vitamin D deficiency, unspecified; M81.0 Age-related osteoporosis without current pathological fracture
CPT/HCPCS: 36415; 80053; 82306; 83735; 83970

== ENCOUNTER → 2021-04-02 14:25 | Outpatient (CLI) | payer MEDICARE, MEDICAID, SELFPAY ==
[2021-04-02 15:18] LABS: Anion Gap 3 (5-15); BUN 17 mg/dL (7-18); BUN/Creat Ratio 21.3 RATIO (10-20); Calcium,Total 9.3 mg/dL (8.5-10.1); Chloride 103 mmol/L (98-107); EST Glomerular Filtration Rate 73 mL/min (>60); Est Glom Filt Rate - Afr Amer 89 mL/min (>60); Glucose 93 mg/dL (74-106); Potassium 4.3 mmol/L (3.5-5.1); Sodium Level 135 mmol/L (136-145)
[2021-04-02 15:23] LABS: Vitamin D,25 Hydroxy 124.6 ng/mL
== END ==
PROVIDERS: PCP Family Medicine; Referring Provider Internal Medicine Endocrinology, Diabetes & Metabolism; Visit Provider Internal Medicine Endocrinology, Diabetes & Metabolism
DX: E03.8 Other specified hypothyroidism (principal); E55.9 Vitamin D deficiency, unspecified
CPT/HCPCS: 36415; 80048; 82306

== ENCOUNTER 2021-06-11 11:49 | Inpatient (IN) | payer MEDICARE, MEDICAID, SELFPAY ==
[2021-06-11] VITALS (10 sets, daily range): BP systolic 137–187; BP diastolic 56–77; PULSE 68–83; RESP 14–19; TEMP 36.7–37.1; O2SAT 95–99; BMI 26.4; BMI 26.5
--- NOTE | 2021-06-11 12:10 | RAD_ITS ---
STUDY: X-RAY CHEST REASON FOR EXAM: Female, 81 years old. Dyspnea TECHNIQUE: Single AP portable view of the chest. COMPARISON: Comparison is made with prior study dated 05/12/2014. FINDINGS: EKG electrodes are seen. The lungs are clear and expanded. There is no demonstrated pleural abnormality. Normal size heart. Normal mediastinum and braydon. Normal visualized pulmonary arteries. There is atherosclerotic calcification of the aortic arch with tortuosity. There are diffuse degenerative changes of the visualized thoracic spine. Normal visualized ribs, clavicles, and shoulders. There is no demonstrated abnormality of the visualized soft tissue structures of the upper abdomen. RAD/Chest 1 View (Portable) IMPRESSION: No acute abnormality is seen. Electronically Signed: Ezekiel Gonzales MD at 13:56 EDT , Service support ,
--- NOTE | 2021-06-11 12:10 | EKG12_ITS ---
Test Reason : Blood Pressure : / mmHG Vent. Rate : 070 BPM Atrial Rate : 070 BPM P-R Int : 182 ms QRS Dur : 128 ms QT Int : 442 ms P-R-T Axes : 050 074 027 degrees QTc Int : 477 ms Normal sinus rhythm Right bundle branch block Abnormal ECG Confirmed by DUTCH PALACIO, KAMAR ([id number]), editor farm journal JOHNNA MAE ([id number]) on 06/13/2021 10:10:45 AM Referred By: Confirmed By:KAMAR JUDD MD
--- NOTE | 2021-06-11 12:12 | EDS_ITS ---
HPI History of Present Illness Chief Complaint: Syncope Detail of Chief Complaint: Near syncope and exertional dyspnea Informant: patient Narrative Narrative: Patient presents to the emergency department with complaint of lightheadedness and near syncope while trying to climb a hill. Patient states that she was walking this afternoon when started feeling lightheaded and feeling like she was in a pass out. Patient states she is stopped frequently because of feeling winded and short of breath which is unusual for her. She denies any chest pain. Patient denies recent illness. She does have a slight cough but she attributes it to allergies. Patient has had both Covid vaccines. She denies fevers. Patient describes some dysuria a month ago but that resolved after drinking cranberry juice. Patient states that when she woke up this morning she felt fine. She denies any blood in her stool or black tarry stools. Prior similar symptoms: No PFSH PFSH Medical History (Updated 06/11/21 @ 14:[address] Kelby Reed, ) Anxiety Hyperlipidemia Hypertension Hypothyroid Home Medications aspirin 81 mg PO DAILY 05/12/14 [History Last Taken Unknown] levothyroxine 75 mcg PO DAILY 05/12/14 [History Last Taken Unknown] omeprazole 40 mg PO DAILY 05/12/14 [History Last Taken Unknown] simvastatin 20 mg PO DAILY 05/12/14 [History Last Taken Unknown] calcium carbonate [Oyster Shell Calcium 500] 500 mg PO DAILY 11/27/14 [History Last Taken Unknown] ergocalciferol (vitamin D2) [Vitamin D2] 50,000 unit PO Q14D 11/27/14 [History Last Taken Unknown] hydrochlorothiazide 25 mg PO DAILY 11/27/14 [History Last Taken Unknown] omega-3 fatty acids-fish oil 1 ea PO DAILY 11/27/14 [History Last Taken Unknown] sertraline 50 mg PO DAILY 11/27/14 [History Last Taken Unknown] multivitamin 1 tab PO DAILY 06/11/21 [History Last Taken Unknown] nebivolol 10 mg PO DAILY 06/11/21 [History Last Taken Unknown] Allergy/AdvReac Type Severity Reaction Status Date / Time red dye Allergy Unknown Verified 06/11/21 11:51 naproxen sodium [From Aleve] AdvReac Upset Verified 06/11/21 11:51 Stomach BANDAIDS AdvReac Rash Uncoded 06/11/21 11:51 Surgical History (Updated 06/11/21 @ 12:46 by Sarahi Taylor) History of appendectomy History of History of cholecystectomy Social History Smoking Status: Never smoker ROS ROS ED ROS Narrative Near syncope Constitutional Constitutional ED: Reports systems reviewed and no addt'l complaints, except as documented; Denies body ache(s), change in weight or chills Eyes Eyes: Denies acute decrease in peripheral vision, change in vision, double vision or loss of vision ENT ENT ED: Reports none; Denies ear pain, lip swelling, loss taste/smell, neck pain, otalgia or sore throat Cardiovascular Cardiovascular: Reports none; Denies abdominal pain, chest pain with activity, leg edema, lightheadedness, palpitations, rapid heart rate or syncope Respiratory/Chest Respiratory/Chest: Reports none, cough and dyspnea; Denies change in mental status, dry cough, hemoptysis, shortness of breath at rest or shortness of breath with exertion Gastrointestinal Gastrointestinal: Reports none; Denies abdominal pain, change in stool character, diarrhea, hematemesis, hematochezia, melena, rectal bleeding or vomiting Genitourinary Genitourinary ED: Reports none; Denies abdominal discomfort, anuria, dysuria, genital pain or polyuria Musculoskeletal Musculoskeletal: Reports none; Denies arthralgias, back pain, difficulty walking, extremity pain, muscle weakness or myalgias Integumentary Reports none; Denies abscess or rash Neurologic Neurologic: Reports none; Denies abnormal gait, confusion, focal weakness, frequent falls, headache(s), loss of vision, numbness, paresthesias, radicular pain, vertigo or weakness Psychiatric Psychiatric: Reports systems reviewed and no addt'l complaints, except as documented and none; Denies behavioral changes, confusion, difficulty concentrating, hallucinations, suicidal ideation, tactile hallucinations or visual hallucinations Endocrine Endocrinology: Denies none, cold intolerance, excessive sweating, fatigue or heat intolerance Hematologic/Lymphatic Hematologic/Lymphatic: Reports none; Denies anemia, easy bleeding or easy bruising Allergic/Immunologic Allergic/Immunologic ED: Denies as per HPI, none, lip swelling, mouth swelling, throat swelling, tongue swelling or hives EXAM Physical Exam Const Vital Signs: 06/11/21 11:49 06/11/21 12:44 06/11/21 14:07 Temperature 98.1 F Temperature Source Temporal Pulse Rate 83 75 80 Respiratory Rate 16 14 16 Respiratory Effort Normal Non-Labored Respiratory Pattern Normal Blood Pressure 137/77 H 167/61 H 187/69 H Blood Pressure Mean 97 96 108 Pulse Ox 99 98 98 Oxygen Delivery Method Room Air Room Air Room Air Positive well nourished and well developed General Appearance ED: well developed and NAD HEENT Reports TM's clear and moist mucous membranes normocephalic and atraumatic; Negative for trauma or tenderness Tympanic Membrane ED: Yes TM's clear Eyes PERRL and EOMs intact bilaterally General Eye ED: Negative for pale conjunctiva or scleral icterus Neck no lymphadenopathy, supple and no JVD General: Negative for tenderness Chest Wall inspection of chest normal and palpation of chest normal Chest: Negative for tenderness Resp normal respiratory effort and clear to auscultation bilaterally Effort and Inspection: Negative for respiratory distress or pain with movement Auscultation: Negative for rhonchi, wheezes or diminished lung sounds Cardio regular rate, regular rhythm, S1 normal heart sound, S2 normal heart sound and no murmurs Peripheral Pulses: pulses 2+ throughout GI normal to inspection, nondistended, normoactive bowel sounds, soft to palpation, non-tender, non-distended and no masses Back/Spine no CVA tenderness and no thoracic nor lumbar tenderness Extremity normal to inspection General Extremety ED: Negative for edema General Extremity: Negative for edema Neuro oriented x3, CN's II-XII intact bilaterally, no sensory deficits noted and gait normal Sensorium / Orientation: awake, alert, oriented to person, oriented to place and oriented to time Motor Exam: strength 5/5 throughout and strength abnormal Psych mental status grossly normal Skin no rashes or lesions noted and no wounds MDM MDM MDM Narrative Medical decision making narrative: Patient continues to feel somewhat lightheaded and etiology of exertional dyspnea near syncope unclear. Case discussed with hospitalist will evaluate patient for admission. Lab Data Attestation: I reviewed the patient's lab results. Labs: Laboratory Results - last 24 hr 06/11/21 06/11/21 06/11/21 12:00 12:00 12:58 WBC 6.4 RBC 4.27 Hgb 10.5 L Hct 35.7 L MCV 83.6 MCH 24.6 L MCHC 29.4 L RDW Std Deviation 48.8 H RDW Coeff of Inna 16.0 H Plt Count 369 MPV 10.9 Immature Gran % (Auto) 0.300 Neut % (Auto) 72.4 H Lymph % (Auto) 17.5 L Charles % (Auto) 8.0 Eos % (Auto) 1.2 Baso % (Auto) 0.6 Absolute Neuts (auto) 4.6 Absolute Lymphs (auto) 1.12 Nucleated RBC % 0 D-Dimer Quant (PE/DVT) 1.23 H* Sodium 135 L Potassium 3.6 Chloride 101 Carbon Dioxide 27.0 Anion Gap 7 BUN 14 Creatinine 1.00 Estim Creat Clear Calc 39.92 Est GFR (MDRD) Af Amer 68 Est GFR (MDRD) Non-Af 56 L BUN/Creatinine Ratio 14.0 Glucose 93 Calcium 9.2 Troponin I High Sens 35.1 Radiography Diagnostic Testing: Radiology Impression Chest X-Ray 06/11/21 12:10 IMPRESSION: No acute abnormality is seen. Electronically Signed: Ezekiel Gonzales MD at 13:56 EDT , Service support , Chest CTA 06/11/21 13:33 IMPRESSION: No evidence of pulmonary embolism. Electronically Signed: Ezekiel Gonzales MD at 14:20 EDT , Service support , Is no acute disease process. EKG Initial EKG: Attestation: I personally reviewed and interpreted this EKG as follows: Comments: Sinus rhythm with a ventricular rate of 70 bpm with a right bundle branch block Discharge Plan Triage Chief Complaint: Syncope ED Provider: Kelby Reed Dx/Rx/DC Orders Clinical Impression: Exertional dyspnea, Near syncope Prescriptions: No Action omeprazole 10 MG capsule,delayed release(DR/EC) 40 mg PO DAILY RF: 0 levothyroxine 75 MCG tablet 75 mcg PO DAILY RF: 0 simvastatin 20 MG tablet 20 mg PO DAILY RF: 0 aspirin 81 MG tablet,chewable 81 mg PO DAILY RF: 0 calcium carbonate [Oyster Shell Calcium 500] 500 MG tablet 500 mg PO DAILY RF: 0 hydrochlorothiazide 25 MG tablet 25 mg PO DAILY RF: 0 ergocalciferol (vitamin D2) [Vitamin D2] 50,000 UNIT capsule 50,000 unit PO Q14D RF: 0 sertraline 50 MG tablet 50 mg PO DAILY RF: 0 omega-3 fatty acids-fish oil 1 EACH capsule 1 ea PO DAILY RF: 0 multivitamin Tablet 1 tab PO DAILY RF: 0 nebivolol 10 mg Tablet 10 mg PO DAILY RF: 0 Primary Care Provider: Tod Reyes Referrals: Tod Reyes MD [Primary Care Provider] - Disposition Disposition: Acute Care Hospital [facility]
[2021-06-11] MEDS: 0.9% Normal Saline 1,000 ML 150 ML IV (12:57)
[2021-06-11 13:11] LABS: Absolute Lymphocyte Count 1.12 X10^3/uL (0.83-4.51); Absolute Neutrophil Count 4.6 X10^3/uL (2.0-7.7); Basophil# 0.04 X10^3/uL; Basophil% 0.6 % (0-1); Eosinophil# 0.08 X10^3/uL; Eosinophils% 1.2 % (0-5); Hematocrit 35.7 % (37-47); Hemoglobin 10.5 g/dL (12.0-15.0); Lymphocyte # 1.12 X10^3/ul (0.83-4.51); Lymphocyte % 17.5 % (19-41); Mean Corp Hgb Conc 29.4 g/dL (32-36); Mean Corpuscular Hgb 24.6 pg (27.0-32.0); Mean Corpuscular Volume 83.6 fL (81-99); Mean Platelet Vol. 10.9 fl (6.2-12.0); Monocyte# 0.51 X10^3/uL; NRBC Flagged by Analyzer 0 % (0-5); Neutrophil # 4.64 X10^3/uL (2.7-7.7); Neutrophil % 72.4 % (47-70); Platelet Count 369 K/mm3 (150-450); RBC Distribution Width SD 48.8 fl (35.1-43.9); Red Blood Count 4.27 M/mm3 (4.2-5.4); White Blood Count 6.4 K/mm3 (4.4-11.0)
[2021-06-11 13:21] LABS: D-Dimer Quantitative (DVT/PE) 1.23 FEU/ug/m (0.27-0.49)
[2021-06-11 13:25] LABS: Anion Gap 7 (5-15); BUN 14 mg/dL (7-18); Calcium,Total 9.2 mg/dL (8.5-10.1); Chloride 101 mmol/L (98-107); EST Glomerular Filtration Rate 56 mL/min (>60); Est Glom Filt Rate - Afr Amer 68 mL/min (>60); Estimated Creatinine Clearance 39.92 ml/min; Glucose 93 mg/dL (74-106); Potassium 3.6 mmol/L (3.5-5.1); Sodium Level 135 mmol/L (136-145); Troponin-I HS 35.1 pg/mL (3.0-53.7)
--- NOTE | 2021-06-11 13:33 | CT_ITS ---
STUDY: CTA CHEST REASON FOR EXAM: Female, 81 years old. Dyspnea, elevated d-dimer RADIATION DOSAGE (If Supplied By Facility): CTDIvol = ( 5.14 ) mGy, DLP = ( 168.17 ) mGycm TECHNIQUE: The examination was performed with the intravenous administration of IV 100mL Isovue-370. Post-processing of the angiographic images was performed, with multiplanar reformation and 3D reconstruction. Individualized dose optimization techniques were used for this CT. COMPARISON: Comparison is made with prior chest radiograph done earlier today. FINDINGS: Small benign-appearing bilateral axillary lymph nodes. Normal enhancement of the main pulmonary artery and right and left pulmonary arteries. Normal enhancement of the bilateral peripheral pulmonary arteries. There is no demonstrated pulmonary embolism. There is atherosclerotic calcification of the aortic arch with tortuosity. There is no demonstrated aortic dissection. There are calcifications of the coronary arteries. There are visualized mediastinal lymph nodes, which are within normal size limits, and with normal morphology. Normal hilar regions. Normal visualized trachea and bronchi. The lungs are well expanded. Normal pulmonary parenchyma. Normal pleura. Normal chest wall structures. There are degenerative changes of thoracic spine. Small hiatal hernia. CT/CTA Chest W/WO Contrast IMPRESSION: No evidence of pulmonary embolism. Electronically Signed: Ezekiel Gonzales MD at 14:20 EDT , Service support ,
[2021-06-11 14:54] LABS: Bacteria 0 SEEN /hpf (None Seen); Mucous, Urine 0 SEEN /hpf (<or=2+); Red Blood Cells-Urine 0 SEEN /hpf (0-5); Squamous Epithelial Cells - UA 0 SEEN /hpf (5-10); White Blood Cells 0 SEEN /hpf (0-5)
--- NOTE | 2021-06-11 14:54 | NURSING ---
PCU OBS KRYSTAL EXERTIONAL DYSPNEA, NEAR SYNCOPE
[2021-06-11 15:01] LABS: Color, Urine Yellow (Yellow); Glucose, Dipstick Normal (Normal); Ketone-Dipstick Negative (Negative); Leukocyte Esterase-Dipstick Negative /ul (Negative); Nitrite-Dipstick Negative (Negative); Occult Blood-Urine Negative /ul (Negative); Protein-Dipstick Negative (Negative); Specific Gravity, Urine 1.005 (1.002-1.030); Urine Bilirubin Dipstick Negative (Negative); Urine Clarity Clear (Clear); Urine Urobilinogen Normal (Normal)
--- NOTE | 2021-06-11 16:13 | EKG12_ITS ---
Test Reason : AM EKG Blood Pressure : / mmHG Vent. Rate : 067 BPM Atrial Rate : 067 BPM P-R Int : 182 ms QRS Dur : 126 ms QT Int : 462 ms P-R-T Axes : 059 077 034 degrees QTc Int : 488 ms Normal sinus rhythm Right bundle branch block Abnormal ECG When compared with ECG of 11-JUN-2021 17:32, MANUAL COMPARISON REQUIRED, DATA IS UNCONFIRMED Confirmed by HARRY PALACIO, ALEXSANDRA ([id number]), web content editor JOHNNA MAE ([id number]) on 06/13/2021 12:46:29 PM Referred By: KRYSTAL Confirmed By:ALEXSANDRA MCDONALD MD
[2021-06-11 17:20] LABS: Troponin-I HS 44.6 pg/mL (3.0-53.7)
--- NOTE | 2021-06-11 17:57 | HP.PCM.HOS_ITS ---
HPI - General General Date of Admission: 06/11/21 HPI Narrative JACKLYN VERGARA, is a 81 F who presented to [facility] on 06/11/2021 with exertional dyspnea and lightheadedness. She states she was walking up a hill today this afternoon and she started to feel more short of breath, lightheaded as if she was going to pass out. She states the gentleman was walking by her and asked her to sit down and she did. He called her daughter and she came and brought her to the emergency department. She stated that she had to stop frequently during this walk because she was feeling more winded which is unusual for her. Her daughter does state that she has a history of anxiety and panic attacks but she indicates that this was much different than that. She states that during this episode she had some mild nausea that resolved when she sat down. She has had no emesis, chest pain, or back pain. She is a never smoker and has a history of hypertension and hyperlipidemia. She denies any family history of coronary disease that she is aware of but admits her mother of a stroke in her father in his sleep. Her vital signs in the emergency department were stable other than for hypertension. She was satting 97% on room air. Her CBC was unremarkable other than a mild anemia which appears to be chronic. Her BMP shows mild chronic hyponatremia with a sodium of 135 but was otherwise normal. Her initial high-sensitivity troponin was 35.1 which is within normal limits. A D-dimer was done and was elevated at 1.23 and was negative for any signs of pulmonary embolism and showed no acute pulmonary process. Her EKG showed no acute signs of ischemia. She was admitted for PCU for further work-up. [facility] Medical History Anxiety Hyperlipidemia Hypertension Hypothyroid Non-smoker Osteoporosis Home Medications aspirin 81 mg PO DAILY 05/12/14 [History Last Taken 06/11/21] levothyroxine 75 mcg PO DAILY 05/12/14 [History Last Taken 06/11/21] simvastatin 20 mg PO DAILY 05/12/14 [History Last Taken 06/10/21] calcium carbonate [Oyster Shell Calcium 500] 500 mg PO DAILY 11/27/14 [History Last Taken 06/11/21] ergocalciferol (vitamin D2) [Vitamin D2] 50,000 unit PO QMONTH 11/27/14 [History Last Taken Unknown] hydrochlorothiazide 25 mg PO DAILY 11/27/14 [History Last Taken 06/11/21] omega-3 fatty acids-fish oil 1 ea PO DAILY 11/27/14 [History Last Taken 06/11/21] sertraline 50 mg PO DAILY 11/27/14 [History Last Taken 06/10/21] alendronate 70 mg PO MO 06/11/21 [History Last Taken 06/09/21] multivitamin 1 tab PO DAILY 06/11/21 [History Last Taken 06/11/21] nebivolol 10 mg PO DAILY 06/11/21 [History Last Taken 06/11/21] Allergy/AdvReac Type Severity Reaction Status Date / Time red dye Allergy Unknown Verified 06/11/21 11:51 naproxen sodium [From Aleve] AdvReac Upset Verified 06/11/21 11:51 Stomach BANDAIDS AdvReac Rash Uncoded 06/11/21 11:51 Family History (Updated 06/11/21 @ 18:[address] Soraida Kirk DO) Other CVA (cerebral vascular accident) Hypertension Surgical History History of appendectomy History of History of cholecystectomy Social History Smoking Status: Never smoker ROS Constitutional Constitutional: Reports weakness; Denies anorexia, change in weight, chills, fatigue, fever(s), malaise, night sweats or other Eyes Eyes: Denies blurry vision, change in eye color, change in vision, discharge from eye(s), double vision, erythema, eye pain, loss of vision or other ENT HEENT: Denies abnormal hearing, dysphagia, ear pain, epistaxis, headache(s), hearing loss, nasal congestion, nasal discharge, post nasal drip, sinus pressure, sore throat or other Cardiovascular Cardiovascular: Reports dyspnea on exertion, edema and lightheadedness; Denies chest pain, claudication, orthopnea, palpitations, paroxysmal nocturnal dyspnea, rapid heart rate, syncope or other Respiratory/Chest Respiratory/Chest: Reports dyspnea and shortness of breath with exertion; Denies cough, excessive phlegm production, hemoptysis, productive cough, shortness of breath at rest, wheezing or other Gastrointestinal Gastrointestinal: Denies abdominal pain, coffee ground emesis, constipation, diarrhea, dyspepsia, hematemesis, hematochezia, loose stools, melena, nausea, vomiting or other Genitourinary Genitourinary: Denies burning urination, difficulty urinating, dysuria, hematuria, nocturia, urinary frequency, urinary hesitancy, urinary incontinence, urinary urgency or other Musculoskeletal Musculoskeletal: Denies arthralgias, back pain, joint pain, joint stiffness, joint swelling, myalgias, neck pain or other Neurologic Neurologic: Denies abnormal gait, abnormal speech, confusion, disequilibrium, d izziness, focal weakness, headache(s), numbness, paresthesias, seizure-like activity, seizures, syncope, tingling, tremor(s) or other Psychiatric Psychiatric: Reports anxiety; Denies depression, homicidal ideation, suicidal ideation or other Endocrine Endocrinology: Denies change in body appearance, cold intolerance, excessive s weating, heat intolerance, polydipsia, polyuria or other Hematologic/Lymphatic Hematologic/Lymphatic: Denies anemia, easy bleeding, easy bruising, lymphadenopathy or other Allergic/Immunologic Allergic/Immunologic: Denies rhinitis, hives, eczemia, asthma or other Vital Signs Vital Signs Vital Signs: 06/11/21 11:49 06/11/21 12:44 06/11/21 14:07 Temperature 98.1 F Temperature Source Temporal Pulse Rate 83 75 80 Pulse Rate [Lying] Pulse Rate [Sitting] Pulse Rate [Standing] Respiratory Rate 16 14 16 Respiratory Effort Normal Non-Labored Respiratory Pattern Normal Blood Pressure 137/77 H 167/61 H 187/69 H Blood Pressure [Lying] Blood Pressure [Sitting] Blood Pressure [Standing] Blood Pressure Mean 97 96 108 Blood Pressure Mean [Lying] Blood Pressure Mean [Sitting] Blood Pressure Mean [Standing] Blood Pressure Source Blood Pressure Position Blood Pressure Location Pulse Ox 99 98 98 Oxygen Delivery Method Room Air Room Air Room Air 06/11/21 14:46 06/11/21 15:27 06/11/21 15:48 Temperature 98.1 F 98.7 F Temperature Source Oral Oral Pulse Rate 70 76 Pulse Rate [Lying] 70 Pulse Rate [Sitting] 76 Pulse Rate [Standing] 77 Respiratory Rate 16 19 H Respiratory Effort Respiratory Pattern Blood Pressure 172/57 H 172/76 H Blood Pressure [Lying] 172/57 H Blood Pressure [Sitting] 176/63 H Blood Pressure [Standing] 146/56 H Blood Pressure Mean 95 108 Blood Pressure Mean [Lying] 95 Blood Pressure Mean [Sitting] 100 Blood Pressure Mean [Standing] 86 Blood Pressure Source Monitor Blood Pressure Position Semi-Fowlers Blood Pressure Location Right Arm Pulse Ox 98 99 Oxygen Delivery Method Room Air 06/11/21 16:33 06/11/21 17:39 Temperature Temperature Source Pulse Rate 72 Pulse Rate [Lying] Pulse Rate [Sitting] Pulse Rate [Standing] Respiratory Rate Respiratory Effort Respiratory Pattern Blood Pressure Blood Pressure [Lying] Blood Pressure [Sitting] Blood Pressure [Standing] Blood Pressure Mean Blood Pressure Mean [Lying] Blood Pressure Mean [Sitting] Blood Pressure Mean [Standing] Blood Pressure Source Blood Pressure Position Blood Pressure Location Pulse Ox 97 Oxygen Delivery Method Room Air Weight Weight: 59.6 kg Body Mass Index (BMI) 26.5 Results Lab / Micro Data Attestation: I reviewed the patient's lab results. Result Diagrams: 06/11/21 12:00 06/11/21 12:00 Labs: Laboratory Results - last 24 hr 06/11/21 12:00: WBC 6.4, RBC 4.27, Hgb 10.5 L, Hct 35.7 L, MCV 83.6, MCH 24.6 L, MCHC 29.4 L, RDW Std Deviation 48.8 H, RDW Coeff of Inna 16.0 H, Plt Count 369, MPV 10.9, Immature Gran % (Auto) 0.300, Neut % (Auto) 72.4 H, Lymph % (Auto) 17.5 L, Summers % (Auto) 8.0, Eos % (Auto) 1.2, Baso % (Auto) 0.6, Absolute Neuts (auto) 4.6, Absolute Lymphs (auto) 1.12, Nucleated RBC % 0 06/11/21 12:00: Sodium 135 L, Potassium 3.6, Chloride 101, Carbon Dioxide 27.0, Anion Gap 7, BUN 14, Creatinine 1.00, Estim Creat Clear Calc 39.92, Est GFR (MDRD) Af Amer 68, Est GFR (MDRD) Non-Af 56 L, BUN/Creatinine Ratio 14.0, Glucose 93, Calcium 9.2, Troponin I High Sens 35.1 06/11/21 12:58: D-Dimer Quant (PE/DVT) 1.23 H* 06/11/21 14:40: Urine Color Yellow, Urine Clarity Clear, Urine pH 7.0, Ur Specific [place] 1.005, Urine Protein Negative, Urine Glucose (UA) Normal, Urine Ketones Negative, Urine Occult Blood Negative, Urine Nitrite Negative, Urine Bilirubin Negative, Urine Urobilinogen Normal, Ur Leukocyte Esterase Negative, Urine RBC 0 SEEN, Urine WBC 0 SEEN, Ur Squamous Epith Cells 0 SEEN, Urine Bacteria 0 SEEN, Urine Mucus 0 SEEN 06/11/21 16:50: Troponin I High Sens 44.6 Radiology Impression Chest X-Ray 06/11/21 12:10 IMPRESSION: No acute abnormality is seen. Electronically Signed: Ezekiel Gonzales MD at 13:56 EDT , Service support , Chest CTA 06/11/21 13:33 IMPRESSION: No evidence of pulmonary embolism. Electronically Signed: Ezekiel Gonzales MD at 14:20 EDT , Service support , Assessment & Plan Assessment/Plan (1) Exertional dyspnea: (2) Near syncope: PLAN: Exertional dyspnea/presyncope -Patient with another risk factors and symptoms are concerning enough that we need to rule out cardiac factors -D-dimer was elevated but CTA negative and no acute pulmonary processes noted -Cycle cardiac enzymes -EKG showed no signs of acute ischemia -Check lipids -Continue statin -Stress test in a.m. if cardiac enzymes remain negative -Patient is already on home aspirin will continue Hypertension -Continue HCTZ -Continue Bystolic Hyperlipidemia -Continue simvastatin Osteoporosis -Continue alendronate -Continue calcium -Continue vitamin D supplementation Vitamin D deficiency -Continue ergocalciferol monthly Hypothyroidism -Continue levothyroxine Depression/anxiety -Continue sertraline DVT prophylaxis -Lovenox CODE STATUS -Full code Charges/Coding Visit Charges Inpatient E&M: 59577 Init Hosp L3
[2021-06-12 04:00] VITALS: BP 147/72; PULSE 66; PULSE 69; RESP 16; TEMP 36.7; O2SAT 98
--- NOTE | 2021-06-12 05:00 | EKG12_ITS ---
Test Reason : SOB Blood Pressure : / mmHG Vent. Rate : 077 BPM Atrial Rate : 077 BPM P-R Int : 176 ms QRS Dur : 122 ms QT Int : 454 ms P-R-T Axes : 054 078 025 degrees QTc Int : 513 ms Sinus rhythm with marked sinus arrhythmia Right bundle branch block Abnormal ECG When compared with ECG of 11-JUN-2021 13:10, MANUAL COMPARISON REQUIRED, DATA IS UNCONFIRMED Confirmed by HARRY PALACIO, ALEXSANDRA ([id number]), graphics editor JOHNNA MAE ([id number]) on 06/13/2021 12:46:40 PM Referred By: KRYSTAL Confirmed By:ALEXSANDRA MCDONALD MD
[2021-06-12] MEDS: Levothyroxine 75 MCG Tablet PO (05:33)
[2021-06-12] MEDS: Aspirin 81 MG TAB.CHEW PO (05:33)
[2021-06-12 06:20] LABS: Absolute Lymphocyte Count 1.28 X10^3/uL (0.83-4.51); Absolute Neutrophil Count 3.5 X10^3/uL (2.0-7.7); Basophil# 0.03 X10^3/uL; Basophil% 0.5 % (0-1); Eosinophil# 0.12 X10^3/uL; Eosinophils% 2.2 % (0-5); Hematocrit 33.7 % (37-47); Hemoglobin 10.2 g/dL (12.0-15.0); Lymphocyte # 1.28 X10^3/ul (0.83-4.51); Lymphocyte % 22.9 % (19-41); Mean Corp Hgb Conc 30.3 g/dL (32-36); Mean Corpuscular Hgb 24.8 pg (27.0-32.0); Mean Corpuscular Volume 81.8 fL (81-99); Monocyte# 0.64 X10^3/uL; Monocyte% 11.5 % (0-10); NRBC Flagged by Analyzer 0 % (0-5); Neutrophil # 3.49 X10^3/uL (2.7-7.7); Neutrophil % 62.5 % (47-70); Platelet Count 343 K/mm3 (150-450); RBC Distribution Width CV 15.9 % (11.6-14.6); RBC Distribution Width SD 47.5 fl (35.1-43.9); Red Blood Count 4.12 M/mm3 (4.2-5.4); White Blood Count 5.6 K/mm3 (4.4-11.0)
[2021-06-12 06:53] LABS: ALB/GLOB Ratio 0.8 RATIO (0.9-2.4); AST(SGOT) 29 U/L (15-37); Alanine Aminotransfer ALT/SGPT 23 U/L (13-56); Albumin, Serum 3.3 g/dL (3.2-5.0); Alkaline Phosphatase 87 U/L (45-117); Anion Gap 6 (5-15); BUN 18 mg/dL (7-18); BUN/Creat Ratio 22.4 RATIO (10-20); Chloride 101 mmol/L (98-107); Cholesterol 117 mg/dL (200); EST Glomerular Filtration Rate 73 mL/min (>60); Est Glom Filt Rate - Afr Amer 88 mL/min (>60); Estimated Creatinine Clearance 50.13 ml/min; Globulin 4.3 g/dL (2.2-4.2); Glucose 85 mg/dL (74-106); High Density Lipoprotein 40 mg/dL; Magnesium 2.1 mg/dL (1.6-2.6); Phosphorus 3.4 mg/dL (2.5-4.9); Potassium 3.4 mmol/L (3.5-5.1); Protein, Total 7.6 g/dL (6.4-8.2); Sodium Level 136 mmol/L (136-145); Thyroid Stim Hormone (TSH) 1.86 uIU/mL (0.358-3.74); Triglycerides 112 mg/dL; Very Low Density Lipoprotein 22 mg/dL (5-40)
[2021-06-12 07:20] VITALS: O2SAT 95
[2021-06-12 07:38] VITALS: PULSE 74
--- NOTE | 2021-06-12 08:55 | NURSING ---
Pt educated via discussion and Ipad about stress test this morning d/t anxiety. Encouraged pt to ask any questions to nurses during test. Also reassured her that a retina subspecialist is usually in and out of the lab during procedures or readily available. Pt verbalizes that she is more comfortable now proceeding. Pt to stress via RECEIPT AND REPORT CLERK at this time.
[2021-06-12 11:07] VITALS: PULSE 74
--- NOTE | 2021-06-12 11:27 | PCM.DC ---
Discharge Instructions Diet Discharge Diet: No restrictions Activity Discharge Activity: Return to Normal Activity Weight Bearing Status: Weight bearing as tolerated Dressing / Incision Call your doctor if you observe: Fever of 101 or Higher, Numbness or Tingling, Shortness of breath, Dizziness, Chest pain, Increased palpitations (irregular heartbeat) and Calf discomfort Follow Up Care Please Follow Up With: Primary care provider When: Within the next two weeks. Test Results: Test results from this visit will be discussed in further detail at your follow-up appointment, if applicable. Discharge Plan Admission Admit Date/Time: 06/11/21 16:06 Primary Reason for Your Visit: Shortness of breath Attending Provider: Rikki Schaeffer Primary Care Provider: Tod Reyes Discharge Orders/Prescriptions Prescriptions: Continued levothyroxine 75 MCG tablet 75 mcg PO DAILY RF: 0 simvastatin 20 MG tablet 20 mg PO DAILY RF: 0 aspirin 81 MG tablet,chewable 81 mg PO DAILY RF: 0 calcium carbonate [Oyster Shell Calcium 500] 500 MG tablet 500 mg PO DAILY RF: 0 hydrochlorothiazide 25 MG tablet 25 mg PO DAILY RF: 0 ergocalciferol (vitamin D2) [Vitamin D2] 50,000 UNIT capsule 50,000 unit PO QMONTH RF: 0 sertraline 50 MG tablet 50 mg PO QHS RF: 0 omega-3 fatty acids-fish oil 1 EACH capsule 1 ea PO DAILY RF: 0 multivitamin Tablet 1 tab PO DAILY RF: 0 nebivolol 10 mg Tablet 10 mg PO DAILY RF: 0 alendronate 70 mg tablet 70 mg PO MO RF: 0 Referrals / Follow Up: Tod Reyes MD [Primary Care Provider] - Within 2 Weeks Disposition Disposition (needs filled in before D/C Order can be placed): Home, Self Care
--- NOTE | 2021-06-12 12:06 | STRESSREP ---
Stress Test Report Regadenoson sestamibi myocardial perfusion stress test. Indication; 81-year-old patient who presented with symptoms of shortness of breath, known history of hyperlipidemia hypertension hypothyroidism non-smoker and history of anxiety disorder. Series of high sensitive troponin were negative. And patient has no prior cardiac history. Stress protocol: Resting EKG demonstrates. Normal sinus rhythm. Right bundle branch block 0.4 mg of regadenoson was infused per usual protocol followed by rapid intravenous saline flush injection continuous EKG monitoring was performed. The maximum heart rate attained was 108 bpm which was 78% of maximum predicted heart . Stress EKG showed[, no significant change from the resting EKG, with maximum heart rate of 107bpm. Arrhythmia: No arrhythmia demonstrated Symptoms: Patient had no symptoms of chest pain Blood pressure at rest: [142/62 mmHg blood pressure at the end of stress: 142/62 mmHg] Myocardial perfusion protocol. [11.1 mCi ]of Technetium 99m Sestamibi was injected at rest. [ 0.4 mg ]of Regadenoson was infused per usual protocol peak infusion[32.7 mCi ]of Technetium 99m sestamibi was injected. Stress images were obtained stress and rest images were reconstructed and compared in the short axis vertical and horizontal long axis. Gated images were also obtained Perfusion SPECT analysis: Review of the images demonstrate normal uptake of sestamibi at rest, post stress images demonstrate similar uptake of sestamibi to the resting images, homogeneous tracer uptake With no evidence of reversible myocardial ischemia. Gated SPECT analysis: The gated ejection fraction is [84 %]. Wall motion showed hyperdynamic left ventricle. Conclusion: Negative Lexiscan sestamibi myocardial perfusion study for reversible myocardial ischemia Hyperdynamic left ventricle. Patient had symptoms of chest pressure which resolved at the end of the test Urmila Arevalo MD,FACC,[facility] applied behavior science specialist
[2021-06-12] MEDS: Potassium Chloride Oral Tablet 20 MEQ 40 MEQ PO (13:06)
[2021-06-12] MEDS: hydroCHLOROthiazide 25 MG Tablet PO (13:07)
[2021-06-12] MEDS: Nebivolol HCl 10 MG Tablet PO (13:07)
--- NOTE | 2021-06-12 13:09 | DS.PCM_ITS ---
Documented by User: Del COULTER 06/12/21 13:17 Providers Date of Admission: 06/11/21 Date of Discharge: 06/12/21 Primary Care Physician: Dr. Tod Reyes MD Reason For Visit: EXERTIONAL DYSPNEA, NEAR SYNCOPE Diagnosis Discharge Diagnosis (1) Exertional dyspnea: Status: Acute Code(s): R06.00 - Dyspnea, unspecified (2) Near syncope: Status: Acute Code(s): R55 - Syncope and collapse Medications at Discharge Home Medications aspirin 81 mg PO DAILY 05/12/14 levothyroxine 75 mcg PO DAILY 05/12/14 simvastatin 20 mg PO DAILY 05/12/14 calcium carbonate [Oyster Shell Calcium 500] 500 mg PO DAILY 11/27/14 ergocalciferol (vitamin D2) [Vitamin D2] 50,000 unit PO QMONTH 11/27/14 hydrochlorothiazide 25 mg PO DAILY 11/27/14 omega-3 fatty acids-fish oil 1 ea PO DAILY 11/27/14 sertraline 50 mg PO QHS 11/27/14 alendronate 70 mg PO MO 06/11/21 multivitamin 1 tab PO DAILY 06/11/21 nebivolol 10 mg PO DAILY 06/11/21 Hospital Course Procedures Nuclear stress test Summary of Care Provided Minutes Spent on Discharge: 35 Hospital Course: Disposition: Patient to be discharged home, no home health care needs with therapies identified. Patient improved quicker than expected and will be discharged home prior to 24-hour window. 1) exertional dyspnea/presyncope Nuclear stress test demonstrated an estimated EF of 84% and did not demonstrate any evidence of myocardial ischemia. D-dimer was elevated on admission, CT-A did not demonstrate any evidence of PE. High-sensitivity troponins not elevated. Plan; continue home aspirin and statin regimen, follow-up with primary care provider within the next 2 weeks. 2) HTN Continue hydrochlorothiazide aguilar Bystolic. 3) hyperlipidemia Continue simvastatin. 4) osteoporosis/vitamin D deficient Continue alendronate, calcium and vitamin D supplements. 5) hypothyroidism Continue levothyroxine. 6) depression/anxiety Continue sertraline. Patient seen by Del Wyatt PA-C, under the supervision of Dr. Schaeffer. Physical Exam Narrative Patient is an 81-year-old female comfortably resting in bed, alert and oriented x3. Patient reports resolution of shortness of breath on admission has no complaints at this time. Denies chest pain, shortness of breath, palpitations, hemoptysis, sputum production, fever, chills, N/V/D. Const alert, oriented x3 and no apparent distress HEENT normocephalic, head/scalp atraumatic and hearing grossly normal bilaterally Eyes PERRL, EOMs intact bilaterally and conjunctivae normal Neck no lymphadenopathy, supple and no JVD Resp normal respiratory effort, no retractions and no use of accessory muscles Cardio regular rate, regular rhythm, no murmurs and no JVD GI normal to inspection, nondistended, normoactive bowel sounds, soft to palpation and non-tender Extremity normal to inspection, full ROM and no clubbing, cyanosis or edema Skin no rashes or lesions noted, no wounds and skin turgor normal Neuro CN's II-XII intact bilaterally Psych affect normal Weight / BMI Weight Weight: 131 lb 6.328 oz Body Mass Index (BMI) 26.5 ABG / Lab / Microbiology Data Result Diagrams: 06/12/21 05:37 06/12/21 05:37 Laboratory: Laboratory Results - last 24 hr 06/11/21 12:00: WBC 6.4, RBC 4.27, Hgb 10.5 L, Hct 35.7 L, MCV 83.6, MCH 24.6 L, MCHC 29.4 L, RDW Std Deviation 48.8 H, RDW Coeff of Inna 16.0 H, Plt Count 369, MPV 10.9, Immature Gran % (Auto) 0.300, Neut % (Auto) 72.4 H, Lymph % (Auto) 17.5 L, [place] % (Auto) 8.0, Eos % (Auto) 1.2, Baso % (Auto) 0.6, Absolute Neuts (auto) 4.6, Absolute Lymphs (auto) 1.12, Nucleated RBC % 0 06/11/21 12:00: Sodium 135 L, Potassium 3.6, Chloride 101, Carbon Dioxide 27.0, Anion Gap 7, BUN 14, Creatinine 1.00, Estim Creat Clear Calc 39.92, Est GFR (MDRD) Af Amer 68, Est GFR (MDRD) Non-Af 56 L, BUN/Creatinine Ratio 14.0, Glucose 93, Calcium 9.2, Troponin I High Sens 35.1 06/11/21 12:58: D-Dimer Quant (PE/DVT) 1.23 H* 06/11/21 14:40: Urine Color Yellow, Urine Clarity Clear, Urine pH 7.0, Ur Specific [place] 1.005, Urine Protein Negative, Urine Glucose (UA) Normal, Urine Ketones Negative, Urine Occult Blood Negative, Urine Nitrite Negative, Urine Bilirubin Negative, Urine Urobilinogen Normal, Ur Leukocyte Esterase Negative, Urine RBC 0 SEEN, Urine WBC 0 SEEN, Ur Squamous Epith Cells 0 SEEN, Urine Bacteria 0 SEEN, Urine Mucus 0 SEEN 06/11/21 16:50: Troponin I High Sens 44.6 06/11/21 20:00: Troponin I High Sens 45.0 06/12/21 05:37: WBC 5.6, RBC 4.12 L, Hgb 10.2 L, Hct 33.7 L, MCV 81.8, MCH 24.8 L, MCHC 30.3 L, RDW Std Deviation 47.5 H, RDW Coeff of Inna 15.9 H, Plt Count 343, MPV 11.0, Immature Gran % (Auto) 0.400, Neut % (Auto) 62.5, Lymph % (Auto) 22.9, [place] % (Auto) 11.5 H, Eos % (Auto) 2.2, Baso % (Auto) 0.5, Absolute Neuts (auto) 3.5, Absolute Lymphs (auto) 1.28, Nucleated RBC % 0 06/12/21 05:37: Sodium 136, Potassium 3.4 L, Chloride 101, Carbon Dioxide 29.0, Anion Gap 6, BUN 18, Creatinine 0.80, Estim Creat Clear Calc 50.13, Est GFR (MDRD) Af Amer 88, Est GFR (MDRD) Non-Af 73, BUN/Creatinine Ratio 22.4 H, Glucose 85, Calcium 9.0, Phosphorus 3.4, Magnesium 2.1, Total Bilirubin 0.50, AST 29, ALT 23, Alkaline Phosphatase 87, Total Protein 7.6, Albumin 3.3, Globulin 4.3 H, Albumin/Globulin Ratio 0.8 L, Triglycerides 112, Cholesterol 117, LDL Cholesterol 55, VLDL Cholesterol 22, HDL Cholesterol 40, TSH 1.86 Radiography Diagnostic Testing: Radiology Impression Chest X-Ray 06/11/21 12:10 IMPRESSION: No acute abnormality is seen. Electronically Signed: Ezekiel Gonzales MD at 13:56 EDT , Service support , Chest CTA 06/11/21 13:33 IMPRESSION: No evidence of pulmonary embolism. Electronically Signed: Ezekiel Gonzales MD at 14:20 EDT , Service support , D/C Instructions Discharge Diet: No restrictions Weight Bearing Status: Weight bearing as tolerated Call your doctor if you observe: Fever of 101 or Higher, Numbness or Tingling, Shortness of breath, Dizziness, Chest pain, Increased palpitations (irregular heartbeat) and Calf discomfort Please Follow Up With: Primary care provider When: Within the next two weeks. Meaningful Use Info Meaningful Use Diagnoses (Choose all that apply): None applicable Discharge Plan Admission Admit Date/Time: 06/11/21 16:06 Primary Reason for Your Visit: Shortness of breath Attending Provider: Rikki Schaeffer Primary Care Provider: Tod Reyes Instructions Additional Instructions / Restrictions: Patient Problems: Altered Health Status related to Hospitalization Patient Goals: *Optimal Level of Health *Keep Appointments *Medication Compliance *Remain Safe Discharge Orders/Prescriptions Prescriptions: Continued levothyroxine 75 MCG tablet 75 mcg PO DAILY RF: 0 simvastatin 20 MG tablet 20 mg PO DAILY RF: 0 aspirin 81 MG tablet,chewable 81 mg PO DAILY RF: 0 calcium carbonate [Oyster Shell Calcium 500] 500 MG tablet 500 mg PO DAILY RF: 0 hydrochlorothiazide 25 MG tablet 25 mg PO DAILY RF: 0 ergocalciferol (vitamin D2) [Vitamin D2] 50,000 UNIT capsule 50,000 unit PO QMONTH RF: 0 sertraline 50 MG tablet 50 mg PO QHS RF: 0 omega-3 fatty acids-fish oil 1 EACH capsule 1 ea PO DAILY RF: 0 multivitamin Tablet 1 tab PO DAILY RF: 0 nebivolol 10 mg Tablet 10 mg PO DAILY RF: 0 alendronate 70 mg tablet 70 mg PO MO RF: 0 Referrals / Follow Up: Tod Reyes MD [Primary Care Provider] - Within 2 Weeks (Please call to schedule follow up appointment) Disposition Disposition (needs filled in before D/C Order can be placed): Home, Self Care Documented by User: Dr. Rikki Schaeffer MD 06/12/21 15:20 Providers Date of Admission: 06/11/21 Reason For Visit: EXERTIONAL DYSPNEA, NEAR SYNCOPE Medications at Discharge Home Medications aspirin 81 mg PO DAILY 05/12/14 levothyroxine 75 mcg PO DAILY 05/12/14 simvastatin 20 mg PO DAILY 05/12/14 calcium carbonate [Oyster Shell Calcium 500] 500 mg PO DAILY 11/27/14 ergocalciferol (vitamin D2) [Vitamin D2] 50,000 unit PO QMONTH 11/27/14 hydrochlorothiazide 25 mg PO DAILY 11/27/14 omega-3 fatty acids-fish oil 1 ea PO DAILY 11/27/14 sertraline 50 mg PO QHS 11/27/14 alendronate 70 mg PO MO 06/11/21 multivitamin 1 tab PO DAILY 06/11/21 nebivolol 10 mg PO DAILY 06/11/21 ABG / Lab / Microbiology Data Result Diagrams: 06/12/21 05:37 06/12/21 05:37 Discharge Plan Admission Admit Date/Time: 06/11/21 16:06 Primary Reason for Your Visit: Shortness of breath Attending Provider: Rikki Schaeffer Primary Care Provider: Tod Reyes Instructions Additional Instructions / Restrictions: Patient Problems: Altered Health Status related to Hospitalization Patient Goals: *Optimal Level of Health *Keep Appointments *Medication Compliance *Remain Safe Discharge Orders/Prescriptions Prescriptions: Continued levothyroxine 75 MCG tablet 75 mcg PO DAILY RF: 0 simvastatin 20 MG tablet 20 mg PO DAILY RF: 0 aspirin 81 MG tablet,chewable 81 mg PO DAILY RF: 0 calcium carbonate [Oyster Shell Calcium 500] 500 MG tablet 500 mg PO DAILY RF: 0 hydrochlorothiazide 25 MG tablet 25 mg PO DAILY RF: 0 ergocalciferol (vitamin D2) [Vitamin D2] 50,000 UNIT capsule 50,000 unit PO QMONTH RF: 0 sertraline 50 MG tablet 50 mg PO QHS RF: 0 omega-3 fatty acids-fish oil 1 EACH capsule 1 ea PO DAILY RF: 0 multivitamin Tablet 1 tab PO DAILY RF: 0 nebivolol 10 mg Tablet 10 mg PO DAILY RF: 0 alendronate 70 mg tablet 70 mg PO MO RF: 0 Referrals / Follow Up: Tod Reyes MD [Primary Care Provider] - Within 2 Weeks (Please call to schedule follow up appointment) Disposition Disposition (needs filled in before D/C Order can be placed): Home, Self Care Charges/Coding Addendum Addendum: Dr. Schaeffer: I personally reviewed the chart and examined the patient, and agree with the above findings. 81-year-old female presents to the hospital with dyspnea on exertion. She had a normal CTA of the chest that did not demonstrate a PE. She was walking in the park and was getting short of breath which is not normal for her so we obtained troponins which were unremarkable but she underwent a stress test which was also negative for any disease. She was discharged home in stable condition. I discussed the situation with both her and her daughter and they expressed understanding risk benefits of going home and would like to take her home today. The daughter felt that anxiety was playing a role as both she and her sister have moved from the area down to [place]. We discussed that this could definitely play a cause with her dyspnea. She is to continue all of her home meds. Visit Charges Inpatient E&M: [id number] Disch Hosp
[2021-06-12 13:18] VITALS: BP 144/60; PULSE 68; RESP 16; TEMP 36.9; O2SAT 98
--- NOTE | 2021-06-12 13:29 | CASEMGMT ---
RN AKANKSHA RACKING MACHINE OPERATOR CM to room to meet with patient for initial transition planning/care coordination assessment. ARIE VALE introduced self and role at [facility]. Pt voices understanding and consents to assessment at this time. Pt resting in bed in no distress at this time. Daughter, Fuad, @ bedside. Pt is A/O at this time and answers all questions appropriately. Care providers, pharmacy, and demographics verified/updated at this time. PCP: Dr Reyes Specialists: Dr Shankar--dowel inserting machine operator in [facility] Pharmacy: [facility] Insurance: [facility], [facility] [employer] Prescription Benefit: Living Will/HPOA: Pt does not currently have LW/HCPOA and declines info at this time. Pt made aware that she can contact as an out-pt and make appt in the future if she decides she would like to talk with someone about this or would like to utilize [facility] social work for advanced directive completion. Given [facility] card with information and contact number. Pt expresses understanding. LNOK: Has 3 daughters. Fuad @ bedside. Living Arrangements: Lives alone in one-story apt. Has 5-6 steps w/rails to get up to parking area from her apt. Independent w/ADL's and IADL's. Pt manages her own medications and appts, but Fuad states pt has been having difficulty w/setting up her pill boxes. Fuad (dtr) states one daughter just recently moved to [place] and Fuad and her are moving to [place] soon. Dtr Jerri, lives local and can assist if needed. Pt/dtr, Fuad, made aware of [facility] and are agreeable to referral. Order placed. Call placed to Fuad @ [facility] and she was notified of referral and that dtrFuad, wishes for her to be contacted. Per Fuad @ [facility], referrals are on hold for about 3 weeks, but they would be in contact w/them. Pt/dtr (Fuad) made aware of same. Transportation: Dtr's, Fuad or Jerri. DME: has the following DME: cane, rails/grab bars Pt states no need for further DME at this time. HHC/SNF: No hx of either. Denies need for HHC or OP therapy. Pt/dtr made aware, if they decide in the future pt would like either, to contact her PCP. They voiced understanding. Pt wishes to return home and states has no concerns with going home at time of discharge. CM to follow for any additional discharge planning/needs. Pt/dtr voice no further concerns/needs at this time. PLAN: Home w/family support and discharge plans. CCN referral placed. Barbara NEGRON RN CM
--- NOTE | 2021-06-12 14:51 | PHA.DC.MR ---
Pharmacy Service has performed discharge medication reconciliation for this patient. No new meds at time of discharge review. Medications reviewed are from previously reported home medications. Home Medications aspirin 81 mg PO DAILY 05/12/14 levothyroxine 75 mcg PO DAILY 05/12/14 simvastatin 20 mg PO DAILY 05/12/14 calcium carbonate [Oyster Shell Calcium 500] 500 mg PO DAILY 11/27/14 ergocalciferol (vitamin D2) [Vitamin D2] 50,000 unit PO QMONTH 11/27/14 hydrochlorothiazide 25 mg PO DAILY 11/27/14 omega-3 fatty acids-fish oil 1 ea PO DAILY 11/27/14 sertraline 50 mg PO QHS 11/27/14 alendronate 70 mg PO MO 06/11/21 multivitamin 1 tab PO DAILY 06/11/21 nebivolol 10 mg PO DAILY 06/11/21 The patient's discharge medication list was reviewed for discrepancies and discrepancies were resolved.
--- NOTE | 2021-07-07 12:40 | CCN.REFER ---
AGREES TO CCN. CCN TO SEE WEEKLY FOR VS MONITORING AND MEDICATION MANAGEMENT. DTR MEET STATES MOVING TO [place] AT END OF JUNE.
== END 2021-06-12 14:58 | disposition home or self-care (01) | DRG 312 ==
LOC: ED 14:51 → PCU 17:49
PROVIDERS: Admitting Provider Internal Medicine; Emergency Provider Emergency Medicine; PCP Family Medicine; Visit Provider Family Medicine
DX: R55 Syncope and collapse (principal); R06.09 Other forms of dyspnea; I10 Essential (primary) hypertension; E78.5 Hyperlipidemia, unspecified; E55.9 Vitamin D deficiency, unspecified; M81.0 Age-related osteoporosis without current pathological fracture; E03.9 Hypothyroidism, unspecified; F32.9 Major depressive disorder, single episode, unspecified; F41.9 Anxiety disorder, unspecified; Z79.899 Other long term (current) drug therapy
CPT/HCPCS: 36415; 71045; 71275; 78452; 80048; 80053; 80061; 81001; 83735; 84100; 84443; 84484; 85025; 85379; 93005; 93017; 99251; 99285; 99406; A9500; J7030; Q9967; A4216; G0463; J2785

== ENCOUNTER → 2021-07-01 14:49 | Outpatient (CLI) | payer MEDICARE, MEDICAID, SELFPAY ==
[2021-06-11 15:41] VITALS: BMI 26.5
[2021-07-01 17:06] LABS: Vitamin D,25 Hydroxy 117.6 ng/mL
[2021-07-01 17:22] LABS: ALB/GLOB Ratio 0.8 RATIO (0.9-2.4); AST(SGOT) 32 U/L (15-37); Alanine Aminotransfer ALT/SGPT 26 U/L (13-56); Albumin, Serum 3.7 g/dL (3.2-5.0); Alkaline Phosphatase 87 U/L (45-117); Anion Gap 10 (5-15); BUN 18 mg/dL (7-18); BUN/Creat Ratio 22.5 RATIO (10-20); Calcium,Total 9.4 mg/dL (8.5-10.1); Chloride 101 mmol/L (98-107); EST Glomerular Filtration Rate 73 mL/min (>60); Est Glom Filt Rate - Afr Amer 88 mL/min (>60); Globulin 4.6 g/dL (2.2-4.2); Glucose 98 mg/dL (74-106); Magnesium 2.2 mg/dL (1.6-2.6); Potassium 3.6 mmol/L (3.5-5.1); Protein, Total 8.3 g/dL (6.4-8.2); Sodium Level 137 mmol/L (136-145); Thyroid Stim Hormone (TSH) 2.05 uIU/mL (0.358-3.74)
== END ==
PROVIDERS: PCP Family Medicine; Visit Provider Internal Medicine Endocrinology, Diabetes & Metabolism
DX: E03.8 Other specified hypothyroidism (principal); E55.9 Vitamin D deficiency, unspecified; E83.42 Hypomagnesemia
CPT/HCPCS: 36415; 80053; 82306; 83735; 84443

== ENCOUNTER → 2021-09-09 13:38 | Outpatient (CLI) | payer MEDICARE, MEDICAID, SELFPAY ==
[2021-09-09 15:37] LABS: ALB/GLOB Ratio 0.7 RATIO (0.9-2.4); AST(SGOT) 40 U/L (15-37); Alanine Aminotransfer ALT/SGPT 27 U/L (13-56); Albumin, Serum 3.7 g/dL (3.2-5.0); Alkaline Phosphatase 104 U/L (45-117); Anion Gap 8 (5-15); BUN 21 mg/dL (7-18); BUN/Creat Ratio 22.5 RATIO (10-20); Calcium,Total 9.1 mg/dL (8.5-10.1); Chloride 102 mmol/L (98-107); Creatinine, Serum 0.94 mg/dL (0.55-1.02); EST Glomerular Filtration Rate 61 mL/min (>60); Est Glom Filt Rate - Afr Amer 74 mL/min (>60); Glucose 99 mg/dL (74-106); Potassium 3.8 mmol/L (3.5-5.1); Protein, Total 8.7 g/dL (6.4-8.2); Sodium Level 136 mmol/L (136-145)
== END ==
PROVIDERS: PCP Family Medicine
DX: E03.8 Other specified hypothyroidism (principal); E55.9 Vitamin D deficiency, unspecified
CPT/HCPCS: 36415; 80053; 82306

== ENCOUNTER → 2022-06-04 | Outpatient (CLI) | payer MEDICARE, MEDICAID, SELFPAY ==
[2022-06-04 14:02] LABS: ALB/GLOB Ratio 0.7 RATIO (0.9-2.4); AST(SGOT) 27 U/L (15-37); Alanine Aminotransfer ALT/SGPT 23 U/L (13-56); Albumin, Serum 3.5 g/dL (3.2-5.0); Alkaline Phosphatase 101 U/L (45-117); Anion Gap 9 (5-15); BUN 33 mg/dL (7-18); BUN/Creat Ratio 39.1 RATIO (10-20); Calcium,Total 9.3 mg/dL (8.5-10.1); Chloride 102 mmol/L (98-107); Creatinine, Serum 0.84 mg/dL (0.55-1.02); EST Glomerular Filtration Rate 68 mL/min (>60); Est Glom Filt Rate - Afr Amer 83 mL/min (>60); Globulin 4.7 g/dL (2.2-4.2); Glucose 98 mg/dL (74-106); Protein, Total 8.2 g/dL (6.4-8.2); Sodium Level 136 mmol/L (136-145); Thyroid Stim Hormone (TSH) 0.48 uIU/mL (0.358-3.74)
== END | disposition home or self-care (01) ==
LOC: LAB 13:03
PROVIDERS: PCP Family Medicine; Referring Provider Nurse Practitioner Adult Health; Visit Provider Nurse Practitioner Adult Health
DX: E03.8 Other specified hypothyroidism (principal); E55.9 Vitamin D deficiency, unspecified
CPT/HCPCS: 36415; 80053; 82306; 83735; 84443

== ENCOUNTER → 2023-05-07 | Outpatient (CLI) | payer MEDICARE, MEDICAID, SELFPAY ==
[2023-05-07 10:36] LABS: ALB/GLOB Ratio 0.7 RATIO (0.9-2.4); AST(SGOT) 27 U/L (15-37); Alanine Aminotransfer ALT/SGPT 18 U/L (13-56); Albumin, Serum 3.3 g/dL (3.2-5.0); Alkaline Phosphatase 99 U/L (45-117); Anion Gap 9 (5-15); BUN 23 mg/dL (7-18); BUN/Creat Ratio 28.2 RATIO (10-20); Calcium,Total 9.3 mg/dL (8.5-10.1); Chloride 106 mmol/L (98-107); Creatinine, Serum 0.82 mg/dL (0.55-1.02); EST Glomerular Filtration Rate 71 mL/min (>60); Est Glom Filt Rate - Afr Amer 86 mL/min (>60); Globulin 4.9 g/dL (2.2-4.2); Glucose 93 mg/dL (74-106); Potassium 3.8 mmol/L (3.5-5.1); Protein, Total 8.2 g/dL (6.4-8.2); Sodium Level 139 mmol/L (136-145); Thyroid Stim Hormone (TSH) 1.61 uIU/mL (0.358-3.74)
== END | disposition home or self-care (01) ==
LOC: LAB 09:32
PROVIDERS: PCP Family Medicine; Referring Provider Internal Medicine Endocrinology, Diabetes & Metabolism; Visit Provider Internal Medicine Endocrinology, Diabetes & Metabolism
DX: E03.8 Other specified hypothyroidism (principal); E55.9 Vitamin D deficiency, unspecified
CPT/HCPCS: 36415; 80053; 82306; 84443

== ENCOUNTER → 2023-06-03 | Outpatient (CLI) | payer MEDICARE, MEDICAID, SELFPAY ==
[2023-06-03 12:45] LABS: ALB/GLOB Ratio 0.7 RATIO (0.9-2.4); AST(SGOT) 32 U/L (15-37); Alanine Aminotransfer ALT/SGPT 19 U/L (13-56); Albumin, Serum 3.2 g/dL (3.2-5.0); Alkaline Phosphatase 101 U/L (45-117); Anion Gap 6 (5-15); BUN 21 mg/dL (7-18); BUN/Creat Ratio 28.1 RATIO (10-20); Chloride 105 mmol/L (98-107); Creatinine, Serum 0.75 mg/dL (0.55-1.02); EST Glomerular Filtration Rate 78 mL/min (>60); Est Glom Filt Rate - Afr Amer 95 mL/min (>60); Globulin 4.7 g/dL (2.2-4.2); Glucose 96 mg/dL (74-106); Potassium 3.7 mmol/L (3.5-5.1); Protein, Total 7.9 g/dL (6.4-8.2); Sodium Level 139 mmol/L (136-145)
== END | disposition home or self-care (01) ==
PROVIDERS: PCP Family Medicine; Referring Provider Internal Medicine Endocrinology, Diabetes & Metabolism; Visit Provider Internal Medicine Endocrinology, Diabetes & Metabolism
DX: E03.8 Other specified hypothyroidism (principal)
CPT/HCPCS: 36415; 80053

== ENCOUNTER → 2024-06-09 | Outpatient (CLI) | payer MEDICARE, MEDICAID, SELFPAY ==
[2024-06-09 11:03] LABS: Vitamin D,25 Hydroxy 54.1 ng/mL
[2024-06-09 11:14] LABS: ALB/GLOB Ratio 0.7 RATIO (0.9-2.4); AST(SGOT) 37 U/L (15-37); Alanine Aminotransfer ALT/SGPT 27 U/L (13-56); Albumin, Serum 3.3 g/dL (3.2-5.0); Alkaline Phosphatase 101 U/L (45-117); Anion Gap 6 (5-15); BUN 22 mg/dL (7-18); BUN/Creat Ratio 27.6 RATIO (10-20); Calcium,Total 9.4 mg/dL (8.5-10.1); Chloride 102 mmol/L (98-107); EST Glomerular Filtration Rate 73 mL/min (>60); Est Glom Filt Rate - Afr Amer 88 mL/min (>60); Globulin 4.6 g/dL (2.2-4.2); Glucose 86 mg/dL (74-106); Potassium 3.7 mmol/L (3.5-5.1); Protein, Total 7.9 g/dL (6.4-8.2); Sodium Level 138 mmol/L (136-145); T4 Free Direct 0.91 ng/dL (0.76-1.46); Thyroid Stim Hormone (TSH) 2.66 uIU/mL (0.358-3.74)
== END | disposition home or self-care (01) ==
PROVIDERS: PCP Family Medicine; Referring Provider Internal Medicine Endocrinology, Diabetes & Metabolism; Visit Provider Internal Medicine Endocrinology, Diabetes & Metabolism
DX: E03.8 Other specified hypothyroidism (principal); E83.42 Hypomagnesemia
CPT/HCPCS: 36415; 80053; 82306; 83735; 84439; 84443

== ENCOUNTER → 2024-10-16 | Outpatient (CLI) | payer MEDICARE, SELFPAY ==
[2024-10-16 17:32] LABS: ALB/GLOB Ratio 0.8 RATIO (0.9-2.4); AST(SGOT) 33 U/L (15-37); Alanine Aminotransfer ALT/SGPT 22 U/L (13-56); Albumin, Serum 3.7 g/dL (3.2-5.0); Alkaline Phosphatase 109 U/L (45-117); Anion Gap 6 (5-15); BUN 26 mg/dL (7-18); BUN/Creat Ratio 23.6 RATIO (10-20); Calcium,Total 9.5 mg/dL (8.5-10.1); Chloride 107 mmol/L (98-107); EST Glomerular Filtration Rate 50 mL/min (>60); Est Glom Filt Rate - Afr Amer 61 mL/min (>60); Globulin 4.7 g/dL (2.2-4.2); Glucose 118 mg/dL (74-106); Potassium 3.4 mmol/L (3.5-5.1); Protein, Total 8.4 g/dL (6.4-8.2); Sodium Level 139 mmol/L (136-145)
== END | disposition home or self-care (01) ==
PROVIDERS: PCP Family Medicine; Referring Provider Nurse Practitioner Adult Health; Visit Provider Nurse Practitioner Adult Health
DX: E03.8 Other specified hypothyroidism (principal)
CPT/HCPCS: 36415; 80053; 84443

== ENCOUNTER → 2025-03-02 | Outpatient (CLI) | payer MEDICARE, SELFPAY ==
[2025-03-02 10:13] LABS: AST(SGOT) 33 U/L (<=31); Alanine Aminotransfer ALT/SGPT 14 U/L (<=34); Albumin, Serum 3.9 g/dL (3.4-4.8); Alkaline Phosphatase 90 U/L (35-104); Anion Gap 11 (5-15); BUN 22 mg/dL (4-19); BUN/Creat Ratio 24.2 RATIO (10-20); Calcium,Total 9.4 mg/dL (7.6-11.0); Carbon Dioxide 26.6 mmol/L (21.0-32.0); Chloride 101 mmol/L (98-108); Creatinine, Serum 0.92 mg/dL (0.70-1.20); EST Glomerular Filtration Rate 61 (>60); Glucose 81 mg/dL (70-99); Potassium 4.5 mmol/L (3.3-5.1); Protein, Total 7.9 g/dL (5.9-8.4); Sodium Level 139 mmol/L (133-145); Total Bilirubin 0.33 mg/dL (0.00-1.30); Vitamin D,25 Hydroxy 30.4 ng/mL (30-100)
== END | disposition home or self-care (01) ==
LOC: LAB 09:07
PROVIDERS: PCP Family Medicine; Referring Provider Internal Medicine Endocrinology, Diabetes & Metabolism; Visit Provider Internal Medicine Endocrinology, Diabetes & Metabolism
DX: E03.8 Other specified hypothyroidism (principal); E55.9 Vitamin D deficiency, unspecified
CPT/HCPCS: 36415; 80053; 82306; 84443

== ENCOUNTER → 2025-08-31 | Outpatient (CLI) | payer MEDICARE, SELFPAY ==
[2025-08-31 12:43] LABS: AST(SGOT) 32 U/L (<=31); Alanine Aminotransfer ALT/SGPT 15 U/L (<=34); Albumin, Serum 4.0 g/dL (3.4-4.8); Alkaline Phosphatase 97 U/L (35-104); Anion Gap 11 (5-15); BUN 21 mg/dL (4-19); BUN/Creat Ratio 25.8 RATIO (10-20); Calcium,Total 9.3 mg/dL (7.6-11.0); Carbon Dioxide 25.4 mmol/L (21.0-32.0); Chloride 101 mmol/L (98-108); Globulin 4.0 g/dL (2.2-4.2); Glucose 87 mg/dL (70-99); Magnesium 2.1 mg/dL (1.5-2.2); Potassium 4.0 mmol/L (3.3-5.1); Vitamin D,25 Hydroxy 46.5 ng/mL (30-100)
== END | disposition home or self-care (01) ==
LOC: LAB 11:29
PROVIDERS: PCP Family Medicine; Referring Provider Nurse Practitioner Adult Health; Visit Provider Nurse Practitioner Adult Health
DX: E03.9 Hypothyroidism, unspecified (principal); E04.2 Nontoxic multinodular goiter; E55.9 Vitamin D deficiency, unspecified; E83.42 Hypomagnesemia
CPT/HCPCS: 36415; 80053; 82306; 83735; 84443